=== PATIENT | female | born 1980 | race Caucasian/White ===

== ENCOUNTER 2020-03-12 05:57 | Emergency (ER) | payer OTHER, SELFPAY ==
[2020-03-12 05:58] VITALS: BP 143/77; PULSE 95; RESP 18; TEMP 36.7; O2SAT 98
[2020-03-12 06:48] VITALS: BP 125/83; PULSE 78; RESP 18; TEMP 36.9; O2SAT 98; BMI 34.7
--- NOTE | 2020-03-12 06:57 | ED_ITS ---
HPI - Abdominal Pain General Chief Complaint: Abdominal Pain Stated Complaint: ABD PAIN/BLOOD IN STOOL Time Seen by Provider: 03/12/20 06:56 History of Present Illness MD elicited complaint: abdominal pain Pertinent past history: other (gastric sleeve) Onset (ago): day(s) (2) Pain Consistency: intermittent Location: RLQ, LLQ and suprapubic Severity: moderate Quality: cramping Radiation: none Migration to: R flank Exacerbating factors: movement Relieving factors: nothing Associated symptoms: nausea, diarrhea and hematochezia Treatments prior to arrival: other (was recently prescribed sulindac for her chronic foot pain) Related Data Previous Rx's Medication Instructions Recorded cyclobenzaprine 10 mg PO TID PRN #14 tab 03/12/20 dicyclomine 20 mg PO TID PRN #30 tab 03/12/20 famotidine [Pepcid] 20 mg PO DAILY PRN #30 tab 03/12/20 ondansetron 4 mg PO Q8H PRN #20 tab 03/12/20 Allergies Allergy/AdvReac Type Severity Reaction Status Date / Time Sulfa (Sulfonamide AdvReac Diarrhea Verified 03/12/20 06:59 Antibiotics) Review of Systems Review of Systems Constitutional : No Weight loss, No Fever, No Chills ENT/Mouth : No sore throat, No Rhinorrhea Eyes: No Swelling, No Redness Cardiovascular : No Chest Pain, No SOB, NoEdema Respiratory : No Cough, No Sputum, No Wheezing Gastrointestinal : Positive Nausea, no Vomiting, positive Diarrhea, positive abdominal Pain, pos Hematochezia, No Melena Genitourinary : No Dysuria, No Urinary Frequency, No Hematuria, No Urgency Musculoskeletal : No joint pain, No Myalgias, No Joint Swelling Skin : No Skin Lesions, No rash Neuro : No Weakness, No Numbness, No Dizziness, No Headache Psych : No Anxiety/Panic, No Depression Heme/Lymph: No Bruising, No Lymphadenopathy Endocrine : No Polyuria, No Polydipsia All other systems reviewed and are negative. Physical Exam Vital Signs: Vital Signs: Last Vital Signs Temp 98.4 F 03/12/20 06:48 Pulse 78 03/12/20 06:48 Resp 18 03/12/20 06:48 BP 125/83 03/12/20 06:48 Pulse Ox 98 03/12/20 06:48 Body Mass Index 34.7 Appearance: Alert. Oriented X3. No acute distress. Eyes: Pupils equal, round and reactive to light. ENT: Pharynx normal. Neck: Normal inspection. Neck supple. CVS: Normal heart rate and rhythm. Pulses normal. Respiratory: No respiratory distress. Breath sounds normal. Abdomen: Soft and moderate lower abdominal ttp no rebound or guarding Rectal: non thrombosed non bleeding ext hemorrhoid x 2, brown stool Skin: Skin warm and dry. Normal skin color. Normal skin turgor. Extremities: No lower extremity edema. No calf ttp Neuro: Oriented X 3. No motor deficit. No sensory deficit. Course Course Course Narrative: patient with negative CT scan at this time - no signs of diverticulitis or colitis, UA pending H/H stable no GIB here MDM - Abdominal Pain MDM Narrative Medical decision making narrative: 39 yo female with hx of gastric sleeve, newly taking sulindac for foot pain complains of lower abdominal pain and diarrhea some of which she said looked bloody, family hx of Crohns and colitis, has not been on antibiotics, at this time will need labs, guiac stool, CT scan for colitis, IVF, IV morphine for pain Lab Data Result diagrams: 03/12/20 07:55 03/12/20 07:55 Labs: Lab Results 03/12/20 03/12/20 03/12/20 Range/Units 07:55 07:55 07:55 WBC 8.3 (4.8-10.8) X10*3/uL RBC 4.26 (4.20-5.50) X10*6/uL Hgb 13.2 (12.0-16.0) g/dl Hct 40.2 (37-47) % MCV 94.4 (80-98) fL MCH 31.0 (27.0-33.0) pg MCHC 32.8 (31.0-35.0) g/dl RDW 13.5 (11.0-16.0) % Plt Count 313 (160-400) X10*3/uL MPV 9.3 L (9.4-12.3) fL Immature Gran % (Auto) 0.2 (0.0-0.4) % Neut % (Auto) 55.2 (45-73) % Lymph % (Auto) 30.8 (20-40) % [place] % (Auto) 5.1 (2-11) % Eos % (Auto) 8.0 H (0-4) % Baso % (Auto) 0.7 (0-2) % Lymph # (Auto) 2.6 (1.2-4.9) X10*3/uL [place] # (Auto) 0.4 (0.1-1.2) X10*3/uL Eos # (Auto) 0.7 H (0.0-0.4) X10*3/uL Baso # (Auto) 0.1 (0.0-0.2) X10*3/uL Abs Immat Gran (auto) 0.02 (0.00-0.03) X10*3/uL Absolute Neuts (auto) 4.6 (2.0-8.3) X10*3/uL Absolute Nucleated RBC 0.000 (0.0-0.012) X10*3/uL Nucleated RBC % (auto) 0.0 (0.0-0.2) /100WBC PT (10.8-13.0) SEC INR (0.9-1.1) APTT (24.1-38.0) SEC Sodium 141 (135-145) mmol/L Potassium 4.1 (3.3-5.1) mmol/l Chloride 105 (96-108) mmol/L Carbon Dioxide 27 (22-29) mmol/L Anion Gap 13 (12-20) BUN 12 (9-16) mg/dL Creatinine 0.67 (0.5-1.4) mg/dL Estim Creat Clear Calc 118.0 Estimated GFR > 60 Random Glucose 90 (60-115) mg/dL Lactic Acid 1.0 (0.5-2.0) mmol/L Calcium 8.7 (8.4-10.2) mg/dL Magnesium 1.8 (1.6-2.6) mg/dL Total Bilirubin 0.5 (0.0-1.0) mg/dL Direct Bilirubin < 0.2 (0.0-0.5) mg/dL AST 16 (5-31) U/L ALT 13 (0-31) U/L Alkaline Phosphatase 79 (39-117) U/L Total Protein 6.4 L (6.5-8.0) g/dL Albumin 4.0 (3.5-5.0) g/dL Lipase 69 (8-78) U/L Urine Color Urine Appearance Urine pH Ur Specific [place] Urine Protein Urine Glucose (UA) Urine Ketones Urine Blood Urine Nitrite Ur Leukocyte Esterase Urine Test Stool Occult Blood (NEG) COVID-19 ([facility]Y) (Negative) COVID-19 Clin Com 03/12/20 03/12/20 03/12/20 Range/Units 07:55 07:55 07:55 WBC (4.8-10.8) X10*3/uL RBC (4.20-5.50) X10*6/uL Hgb (12.0-16.0) g/dl Hct (37-47) % MCV (80-98) fL MCH (27.0-33.0) pg MCHC (31.0-35.0) g/dl RDW (11.0-16.0) % Plt Count (160-400) X10*3/uL MPV (9.4-12.3) fL Immature Gran % (Auto) (0.0-0.4) % Neut % (Auto) (45-73) % Lymph % (Auto) (20-40) % [place] % (Auto) (2-11) % Eos % (Auto) (0-4) % Baso % (Auto) (0-2) % Lymph # (Auto) (1.2-4.9) X10*3/uL [place] # (Auto) (0.1-1.2) X10*3/uL Eos # (Auto) (0.0-0.4) X10*3/uL Baso # (Auto) (0.0-0.2) X10*3/uL Abs Immat Gran (auto) (0.00-0.03) X10*3/uL Absolute Neuts (auto) (2.0-8.3) X10*3/uL Absolute Nucleated RBC (0.0-0.012) X10*3/uL Nucleated RBC % (auto) (0.0-0.2) /100WBC PT 11.5 (10.8-13.0) SEC INR 1.0 (0.9-1.1) APTT 36.1 (24.1-38.0) SEC Sodium (135-145) mmol/L Potassium (3.3-5.1) mmol/l Chloride (96-108) mmol/L Carbon Dioxide (22-29) mmol/L Anion Gap (12-20) BUN (9-16) mg/dL Creatinine (0.5-1.4) mg/dL Estim Creat Clear Calc Estimated GFR Random Glucose (60-115) mg/dL Lactic Acid (0.5-2.0) mmol/L Calcium (8.4-10.2) mg/dL Magnesium (1.6-2.6) mg/dL Total Bilirubin (0.0-1.0) mg/dL Direct Bilirubin (0.0-0.5) mg/dL AST (5-31) U/L ALT (0-31) U/L Alkaline Phosphatase (39-117) U/L Total Protein (6.5-8.0) g/dL Albumin (3.5-5.0) g/dL Lipase (8-78) U/L Urine Color Urine Appearance Urine pH Ur Specific [place] Urine Protein Urine Glucose (UA) Urine Ketones Urine Blood Urine Nitrite Ur Leukocyte Esterase Urine Test Stool Occult Blood POS (NEG) COVID-19 ([facility]) Negative (Negative) COVID-19 Clin Com See Note 03/12/20 Range/Units 09:05 WBC (4.8-10.8) X10*3/uL RBC (4.20-5.50) X10*6/uL Hgb (12.0-16.0) g/dl Hct (37-47) % MCV (80-98) fL MCH (27.0-33.0) pg MCHC (31.0-35.0) g/dl RDW (11.0-16.0) % Plt Count (160-400) X10*3/uL MPV (9.4-12.3) fL Immature Gran % (Auto) (0.0-0.4) % Neut % (Auto) (45-73) % Lymph % (Auto) (20-40) % [place] % (Auto) (2-11) % Eos % (Auto) (0-4) % Baso % (Auto) (0-2) % Lymph # (Auto) (1.2-4.9) X10*3/uL [place] # (Auto) (0.1-1.2) X10*3/uL Eos # (Auto) (0.0-0.4) X10*3/uL Baso # (Auto) (0.0-0.2) X10*3/uL Abs Immat Gran (auto) (0.00-0.03) X10*3/uL Absolute Neuts (auto) (2.0-8.3) X10*3/uL Absolute Nucleated RBC (0.0-0.012) X10*3/uL Nucleated RBC % (auto) (0.0-0.2) /100WBC PT (10.8-13.0) SEC INR (0.9-1.1) APTT (24.1-38.0) SEC Sodium (135-145) mmol/L Potassium (3.3-5.1) mmol/l Chloride (96-108) mmol/L Carbon Dioxide (22-29) mmol/L Anion Gap (12-20) BUN (9-16) mg/dL Creatinine (0.5-1.4) mg/dL Estim Creat Clear Calc Estimated GFR Random Glucose (60-115) mg/dL Lactic Acid (0.5-2.0) mmol/L Calcium (8.4-10.2) mg/dL Magnesium (1.6-2.6) mg/dL Total Bilirubin (0.0-1.0) mg/dL Direct Bilirubin (0.0-0.5) mg/dL AST (5-31) U/L ALT (0-31) U/L Alkaline Phosphatase (39-117) U/L Total Protein (6.5-8.0) g/dL Albumin (3.5-5.0) g/dL Lipase (8-78) U/L Urine Color Cancelled Urine Appearance Cancelled Urine pH Cancelled Ur Specific [place] Cancelled Urine Protein Cancelled Urine Glucose (UA) Cancelled Urine Ketones Cancelled Urine Blood Cancelled Urine Nitrite Cancelled Ur Leukocyte Esterase Cancelled Urine Test Cancelled Stool Occult Blood (NEG) COVID-19 ([facility]) (Negative) COVID-19 Clin Com Discharge Plan Discharge Clinical Impression: Abdominal pain, Rectal bleed Patient Disposition: Home, Self-Care Instructions: Rectal Bleeding (ED), Abdominal Pain (ED) Additional Instructions: return to ED for any worsening symptoms or concerns STOP TAKING YOUR NEW MEDICATION take the pepcid regularly for 2 weeks Prescriptions: New cyclobenzaprine 10 mg tablet 10 mg PO TID PRN (Reason: muscle spasm) Qty: 14 RF: 0 famotidine [Pepcid] 20 mg tablet 20 mg PO DAILY PRN (Reason: abdominal discomfort) Qty: 30 RF: 0 ondansetron 4 mg tablet,disintegrating 4 mg PO Q8H PRN (Reason: nausea and vomiting) Qty: 20 RF: 0 dicyclomine 20 mg tablet 20 mg PO TID PRN (Reason: abdominal discomfort) Qty: 30 RF: 0 Referrals: Alfred Long MD [Physician] - 3 days (if this persists may need colonoscopy) Stand Alone Forms: Work/School Release [facility] Past Medical History Medical History (Updated 03/12/20 @ 10:35 by Angy Mcfarland DO) Bipolar 1 disorder Chronic back pain Chronic headaches Ectopic , tubal HTN (hypertension) Obesity Surgical History (Updated 03/12/20 @ 07:00 by Angy Mcfarland DO) Bariatric surgery status H/O abdominoplasty Social History Social History (Updated 03/12/20 @ 07:00 by Angy Mcfarland DO) Alcohol intake: never Smoking Status: Former smoker Smoked in Last 30 Days: No Use of substances other than those prescribed or required for medical reasons: No Advance Directives: No Advance Directives Information Provided: No
--- NOTE | 2020-03-12 07:00 | CT_ITS ---
EXAMINATION: CT ABDOMEN AND PELVIS WITH CONTRAST CLINICAL INFORMATION: Abdominal pain and rectal bleeding COMPARISON: Previous CT of the abdomen and pelvis December 2016 and abdominal ultrasound March 2018 TECHNIQUE: Multidetector volumetric images were obtained from the superior aspect of the liver through the pubic symphysis following administration 85 mL of Omnipaque 350 intravenous contrast. Sagittal and coronal reformatted images were obtained on the technologist's workstation. Oral contrast: Yes This CT examination was performed using dose optimization techniques as appropriate, variously including the following: *Automated exposure control *Adjustment of mA and/or kV according to patient size (this includes techniques or standardized protocols for targeted exams where dose is matched to indication/reason for exam; i.e. extremities or head) *Use of iterative reconstruction technique DLP: 793 mGy-cm FINDINGS: LUNG BASES: The visualized lung bases are unremarkable. LIVER, GALLBLADDER, AND BILIARY TREE: The liver is normal in size, shape, and attenuation. No focal hepatic lesion or biliary ductal dilatation is present. The gallbladder is unremarkable with no evidence of radiopaque gallstones, gallbladder wall thickening, or obvious pericholecystic inflammatory changes. PANCREAS: Unremarkable. SPLEEN: Unremarkable. ADRENAL GLANDS: Unremarkable. KIDNEYS AND URETERS: The kidneys are normal in size, shape, and attenuation. No hydronephrosis, hydroureter, or calculi seen. No perinephric stranding. BLADDER: Unremarkable. GASTROINTESTINAL TRACT: There is mild diverticulosis of the colon. No evidence of diverticulitis or colitis The small and large bowel are otherwise unremarkable. The appendix is unremarkable. There are postoperative changes from gastric sleeve procedure. ABDOMINAL WALL: There are postsurgical changes to the anterior abdominal wall. LYMPH NODES: Normal. VASCULAR: Unremarkable. PELVIC VISCERA: There is an IUD in satisfactory position. OSSEOUS STRUCTURES: There are postsurgical changes at L4-L5 and CT/CT abdomen pelvis w con IMPRESSION: Mild diverticulosis of the colon. Postoperative changes from gastric bypass. The uterus
[2020-03-12] MEDS: ondansetron HCL 4 MG/2 ML VIAL IVPUSH (07:59)
[2020-03-12] MEDS: Morphine Sulfate 4 MG/ML CARTRIDGE IVPUSH (07:59)
[2020-03-12] MEDS: 0.9 % Sodium Chloride 1,000 ML 999 ML IVCONT (08:00)
[2020-03-12 08:02] LABS: MANUAL DIFF FLAG NO
[2020-03-12 08:03] LABS: Basophils Absolute Auto 0.1 X10*3/uL (0.0-0.2); Basophils Percent Auto 0.7 % (0-2); Eosinophils Absolute Auto 0.7 X10*3/uL (0.0-0.4); Hematocrit 40.2 % (37-47); Hemoglobin 13.2 g/dl (12.0-16.0); Imm Gran Abs Auto 0.02 X10*3/uL (0.00-0.03); Imm Gran Pct Auto 0.2 % (0.0-0.4); Lymphocytes Absolute Auto 2.6 X10*3/uL (1.2-4.9); Lymphocytes Percent Auto 30.8 % (20-40); Mean Corpuscular HGB Conc 32.8 g/dl (31.0-35.0); Mean Corpuscular Volume 94.4 fL (80-98); Mean Platelet Volume 9.3 fL (9.4-12.3); Monocytes Absolute Auto 0.4 X10*3/uL (0.1-1.2); Monocytes Percent Auto 5.1 % (2-11); Neutrophils Absolute Auto 4.6 X10*3/uL (2.0-8.3); Neutrophils Percent Auto 55.2 % (45-73); Platelet Count 313 X10*3/uL (160-400); Red Blood Count 4.26 X10*6/uL (4.20-5.50); Red Cell Distribution Width 13.5 % (11.0-16.0); White Blood Count 8.3 X10*3/uL (4.8-10.8)
[2020-03-12 08:04] LABS: OBS Int Ctl Valid YES; OBS1 POS (NEG)
[2020-03-12 08:09] LABS: Prothrombin Time 11.5 SEC (10.8-13.0)
[2020-03-12 08:11] LABS: Partial Thromboplastin Time 36.1 SEC (24.1-38.0)
[2020-03-12 08:20] LABS: COVID-19 Test Negative (Negative)
[2020-03-12 08:28] LABS: Alanine Aminotransferase 13 U/L (0-31); Alkaline Phosphatase 79 U/L (39-117); Anion Gap 13 (12-20); Aspartate Amino Transferase 16 U/L (5-31); Bilirubin Direct < 0.2 mg/dL (0.0-0.5); Bilirubin Total 0.5 mg/dL (0.0-1.0); Blood Urea Nitrogen 12 mg/dL (9-16); Calcium 8.7 mg/dL (8.4-10.2); Carbon Dioxide 27 mmol/L (22-29); Chloride 105 mmol/L (96-108); Estimated Glomerular Filt Rate > 60; Glucose Random 90 mg/dL (60-115); Lipase 69 U/L (8-78); Magnesium 1.8 mg/dL (1.6-2.6); Potassium 4.1 mmol/l (3.3-5.1); Sodium 141 mmol/L (135-145); Total Protein 6.4 g/dL (6.5-8.0)
[2020-03-12] MEDS: iohexoL 350 MG/ML 100 ML INFUS..BTL IV (09:33)
[2020-03-12] MEDS: Acetaminophen Oral Liquid 650 MG/20.3 ML SOLUTION PO (10:15)
[2020-03-12 10:45] LABS: Glucose Urine UA NEG (NEG); Leukocyte Esterase Urine NEG (NEG); Nitrite Urine NEG (NEG); Urine Blood NEG (NEG); Urine Ketones NEG (NEG); Urine Protein NEG (NEG-TRACE)
[2020-03-12 10:46] LABS: Appearance Urine CLEAR; Color Urine YELLOW
[2020-03-12 10:47] LABS: UPreg QC Valid YES; Urine Pregnancy NEGATIVE (NEGATIVE)
== END 2020-03-12 11:02 | disposition home or self-care (01) ==
PROVIDERS: Emergency Provider Emergency Medicine; PCP Internal Medicine
DX: K62.5 Hemorrhage of anus and rectum (principal); R10.31 Right lower quadrant pain; R10.32 Left lower quadrant pain; R19.7 Diarrhea, unspecified; Z20.822 Contact with and (suspected) exposure to COVID-19; Z79.899 Other long term (current) drug therapy
CPT/HCPCS: 36415; 74177; 80048; 80076; 81003; 81025; 82272; 83605; 83690; 83735; 85025; 85610; 85730; 87040; 87635; 96361; 96374; 96375; 99284; J2270; J2405; Q9967

== ENCOUNTER 2020-05-24 13:41 | Emergency (ER) | payer OTHER, SELFPAY ==
--- NOTE | ~2020-05-24 | XR_ITS ---
EXAMINATION: XR CHEST CLINICAL INFORMATION: Chest pain . COMPARISON: None TECHNIQUE: Frontal view of the chest was obtained. FINDINGS: No significant abnormality is noted involving the heart, lungs, mediastinum, bony thorax or soft tissues. XR/XR chest 1V IMPRESSION: Unremarkable chest examination.
--- NOTE | 2020-05-24 13:53 | ECG_ITS ---
Test Reason : CHEST PAIN Blood Pressure : / mmHG Vent. Rate : 113 BPM Atrial Rate : 113 BPM P-R Int : 116 ms QRS Dur : 080 ms QT Int : 314 ms P-R-T Axes : 040 -03 -06 degrees QTc Int : 430 ms Sinus tachycardia Moderate voltage criteria for LVH, may be normal variant Borderline ECG When compared with ECG of 21-OCT-2019 10:59, No significant change was found Referred By: Generic ED Physician Electronically Signed By:MARIA ALEJANDRA NAZARIO
[2020-05-24 14:06] VITALS: BP 133/84; PULSE 115; RESP 22; TEMP 36.7; O2SAT 99; BMI 35.2
[2020-05-24 14:25] LABS: MANUAL DIFF FLAG NO
[2020-05-24 14:26] LABS: Basophils Absolute Auto 0.1 X10*3/uL (0.0-0.2); Basophils Percent Auto 0.6 % (0-2); Eosinophils Absolute Auto 0.6 X10*3/uL (0.0-0.4); Eosinophils Percent Auto 7.1 % (0-4); Hematocrit 37.7 % (37-47); Hemoglobin 12.2 g/dl (12.0-16.0); Imm Gran Abs Auto 0.02 X10*3/uL (0.00-0.03); Imm Gran Pct Auto 0.3 % (0.0-0.4); Lymphocytes Absolute Auto 2.2 X10*3/uL (1.2-4.9); Lymphocytes Percent Auto 27.6 % (20-40); Mean Corpuscular HGB Conc 32.4 g/dl (31.0-35.0); Mean Corpuscular Volume 95.9 fL (80-98); Monocytes Absolute Auto 0.4 X10*3/uL (0.1-1.2); Monocytes Percent Auto 5.3 % (2-11); Neutrophils Absolute Auto 4.6 X10*3/uL (2.0-8.3); Neutrophils Percent Auto 59.1 % (45-73); Platelet Count 320 X10*3/uL (160-400); Red Blood Count 3.93 X10*6/uL (4.20-5.50); Red Cell Distribution Width 13.4 % (11.0-16.0); White Blood Count 7.9 X10*3/uL (4.8-10.8)
[2020-05-24 14:55] LABS: Anion Gap 13 (12-20); Blood Urea Nitrogen 15 mg/dL (9-16); Calcium 8.6 mg/dL (8.4-10.2); Carbon Dioxide 23 mmol/L (22-29); Chloride 108 mmol/L (96-108); Creatinine Clr Calc Pharmacy 120.8; Estimated Glomerular Filt Rate > 60; Glucose Random 116 mg/dL (60-115); Potassium 3.8 mmol/L (3.3-5.1); Sodium 140 mmol/L (135-145)
[2020-05-24 14:59] VITALS: BP 120/74; PULSE 101; RESP 18; TEMP 36.8; O2SAT 98
[2020-05-24 15:01] LABS: Troponin-I High Sensitivity < 3.5 ng/L (<3.5-17.0)
--- NOTE | 2020-05-24 15:07 | ED.CHESTPAIN ---
HPI - Chest Pain General Chief Complaint: Chest Pain Stated Complaint: HIGH HEART RATE CHEST PAIN Time Seen by Provider: 05/24/20 14:50 Source: patient Mode of arrival: ambulatory Limitations: no limitations History of Present Illness HPI narrative: 39-year-old female with past medical history significant for gastric sleeve, Chronic back pain, Chronic headaches, Ectopic , HTN, Obesity she presents ambulatory to triage with complaint of chest pain which at times will radiate to her shoulders states she has noticed that her heart rate has been elevated in the ?160s ? States she has had this issue in the past she has called her primary care doctor and she is scheduled to see a client liaison and have Holter monitor study. Additionally states do all of her chest discomfort she was also having headache which is consistent with her chronic and these other symptoms has exacerbated this. She otherwise denies any recent URI symptoms no shortness of breath no lower extremity swelling or pain. No recent travel. No recent sick contacts. Chest pain is described as pressure-like on the left-sided chest worsened with certain movements and palpation no specific alleviating factors. She has not tried anything at home. MD complaint: chest discomfort Onset (ago): day(s) Timing of current episode: constant Prior episodes: Yes Onset: during rest Pain location: left chest Pain radiation: left shoulder Severity: moderate Quality: tightness and aching Relieving factors: nothing Exacerbating factors: nothing Treatment prior to arrival: none Related Data Previous Rx's Medication Instructions Recorded cyclobenzaprine 10 mg PO TID PRN #14 tab 03/12/20 dicyclomine 20 mg PO TID PRN #30 tab 03/12/20 famotidine [Pepcid] 20 mg PO DAILY PRN #30 tab 03/12/20 ondansetron 4 mg PO Q8H PRN #20 tab 03/12/20 Allergies Allergy/AdvReac Type Severity Reaction Status Date / Time Sulfa (Sulfonamide AdvReac Diarrhea Verified 03/12/20 06:59 Antibiotics) Review of Systems Review of Systems: Constitutional: No Weight loss, No Fever, No Chills, No Night Sweats, No Fatigue, No Malaise ENT/Mouth: No Hearing loss, No Ear Pain, No Nasal Congestion, No Sinus Pain, No Hoarseness, No sore throat, No Rhinorrhea, No Swallowing Difficulty Eyes: No Eye Pain, No Swelling, No Redness, No Foreign Body, No Discharge, No Vision Changes Cardiovascular: + Chest Pain, No SOB, No Dyspnea on Exertion, No Orthopnea, No Edema, No Palpitations Respiratory: No Cough, No Sputum, No Wheezing, No Dyspnea Gastrointestinal: No Nausea, No Vomiting, No Diarrhea, No Constipation, No abdominal Pain, No Hematochezia, No Melena Genitourinary: no irregular bleeding, No Dysuria, No Urinary Frequency, No Hematuria, No Urinary Incontinence, No Urgency, No Flank Pain, No Urinary Flow Changes, No Hesitancy Musculoskeletal: No joint pain, No Myalgias, No Joint Swelling Skin: No Skin Lesions, No rash Neuro: No Weakness, No Numbness, No Paresthesias, No Loss of Consciousness, No Dizziness, No Headache Psych: + Anxiety/Panic, No Depression, No SI/HI/AH/VH, No Social Issues Heme/Lymph: No Bruising, No Bleeding,No Lymphadenopathy Endocrine: No Polyuria, No Polydipsia, No Temperature Intolerance Yes all other systems are reviewed and are negative [facility] Past Medical History Medical History Bipolar 1 disorder Chronic back pain Chronic headaches Ectopic , tubal HTN (hypertension) Obesity Surgical History Bariatric surgery status H/O abdominoplasty Social History Social History (Updated 03/12/20 @ 07:00 by Angy Mcfarland DO) Alcohol intake: never Smoking Status: Former smoker Advance Directives: No Physical Exam Vital Signs: Vital Signs: Last Vital Signs Temp 97.6 F 05/24/20 16:31 Pulse 95 05/24/20 16:31 Resp 18 05/24/20 16:31 BP 135/85 05/24/20 16:31 Pulse Ox 100 05/24/20 16:31 Body Mass Index 35.2 Reviewed Const: General: cooperative and healthy appearing; No acute distress or intoxicated appearing Nutritional Appearance: average body habitus Orientation/consciousness: patient oriented x3 HENMT: Head: Yes normal to inspection Ears: hearing grossly normal bilaterally Eyes: General: appearance normal, both eyes and all related structures Visual Harris: normal visual harris by confrontation Neck: Neck: Yes normal visual inspection, No positive Brudzinski's sign, No positive Kernig's sign and No tender Thyroid: Thyroid normal Chest: Chest palpation & inspection: normal inspection of the chest and tenderness pectoral muscle Resp: Effort & Inspection: normal respiratory effort Auscultation: clear to auscultation bilaterally Cardio: Jugular venous distension: no JVD Rate: tachycardic Heart sounds: S1 normal heart sound present and S2 normal heart sound present GI: Inspection: Yes normal to inspection Palpation (GI): Soft to palpation Percussion: Yes normal to percussion Auscultation: normal bowel sounds : General: Yes no CVA tenderness Back/Spine/Pelvis: Back: no CVA tenderness Skin: General skin exam: no rashes or lesions noted Neuro: General: patient oriented x3 Extrem: General: Yes normal to inspection Course Reevaluation(s) Reevaluation #1: Constellation of symptoms including chest pain has had similar episodes in the past seem more musculoskeletal/pleurisy has had several negative workups does clinically appear to be more anxious. My suspicions for ACS/pulmonary embolism/dissection/infectious pathology are low. She had protocol lab work done in triage with the negative EKG and negative troponin and electrolytes overall without derangement however she is tachycardic [id number] thus D-dimer and TSH was added. At this time will treat her symptomatically with nonnarcotic analgesia for her chest pain and she is requesting sumatriptan for headache which has worked well in the past. Otherwise hemodynamically stable, nontoxic appearing, VSS, NAD. Reevaluation #2: 1545 While awaiting blood work including the D-dimer test I was just informed by the nurse that patient had eloped without informing anyone. Patient did not have an IV in place. Attempted to call number listed went to voicemail requesting call back. MDM - Chest Pain Medical Records Data Attestation: I reviewed the patient's medical records. Lab Data Attestation: I reviewed the patient's lab results. Result diagrams: 05/24/20 14:18 05/24/20 14:18 Labs: Lab Results 05/24/20 05/24/20 05/24/20 Range/Units 14:18 14:18 14:18 WBC 7.9 (4.8-10.8) X10*3/uL RBC 3.93 L (4.20-5.50) X10*6/uL Hgb 12.2 (12.0-16.0) g/dl Hct 37.7 (37-47) % MCV 95.9 (80-98) fL MCH 31.0 (27.0-33.0) pg MCHC 32.4 (31.0-35.0) g/dl RDW 13.4 (11.0-16.0) % Plt Count 320 (160-400) X10*3/uL MPV 9.0 L (9.4-12.3) fL Immature Gran % (Auto) 0.3 (0.0-0.4) % Neut % (Auto) 59.1 (45-73) % Lymph % (Auto) 27.6 (20-40) % [place] % (Auto) 5.3 (2-11) % Eos % (Auto) 7.1 H (0-4) % Baso % (Auto) 0.6 (0-2) % Lymph # (Auto) 2.2 (1.2-4.9) X10*3/uL [place] # (Auto) 0.4 (0.1-1.2) X10*3/uL Eos # (Auto) 0.6 H (0.0-0.4) X10*3/uL Baso # (Auto) 0.1 (0.0-0.2) X10*3/uL Abs Immat Gran (auto) 0.02 (0.00-0.03) X10*3/uL Absolute Neuts (auto) 4.6 (2.0-8.3) X10*3/uL Absolute Nucleated RBC 0.000 (0.0-0.012) X10*3/uL Nucleated RBC % (auto) 0.0 (0.0-0.2) /100WBC PT 10.9 (10.8-13.0) SEC INR 0.9 (0.9-1.1) APTT 33.9 (24.1-38.0) SEC Hold Blue Top SEE NOTE Sodium 140 (135-145) mmol/L Potassium 3.8 (3.3-5.1) mmol/L Chloride 108 (96-108) mmol/L Carbon Dioxide 23 (22-29) mmol/L Anion Gap 13 (12-20) BUN 15 (9-16) mg/dL Creatinine 0.66 (0.5-1.4) mg/dL Estim Creat Clear Calc 120.8 Estimated GFR > 60 Random Glucose 116 H (60-115) mg/dL Calcium 8.6 (8.4-10.2) mg/dL Total Bilirubin 0.2 (0.0-1.0) mg/dL Direct Bilirubin < 0.2 (0.0-0.5) mg/dL AST 16 (5-31) U/L ALT 16 (0-31) U/L Alkaline Phosphatase 74 (39-117) U/L Troponin I High Sens (<3.5-17.0) ng/L Total Protein 6.4 L (6.5-8.0) g/dL Albumin 3.9 (3.5-5.0) g/dL TSH 0.49 (0.32-4.0) uIU/mL COVID-19 (REILLY) (Negative) COVID-19 Clin Com 05/24/20 05/24/20 Range/Units 14:18 16:06 WBC (4.8-10.8) X10*3/uL RBC (4.20-5.50) X10*6/uL Hgb (12.0-16.0) g/dl Hct (37-47) % MCV (80-98) fL MCH (27.0-33.0) pg MCHC (31.0-35.0) g/dl RDW (11.0-16.0) % Plt Count (160-400) X10*3/uL MPV (9.4-12.3) fL Immature Gran % (Auto) (0.0-0.4) % Neut % (Auto) (45-73) % Lymph % (Auto) (20-40) % [place] % (Auto) (2-11) % Eos % (Auto) (0-4) % Baso % (Auto) (0-2) % Lymph # (Auto) (1.2-4.9) X10*3/uL [place] # (Auto) (0.1-1.2) X10*3/uL Eos # (Auto) (0.0-0.4) X10*3/uL Baso # (Auto) (0.0-0.2) X10*3/uL Abs Immat Gran (auto) (0.00-0.03) X10*3/uL Absolute Neuts (auto) (2.0-8.3) X10*3/uL Absolute Nucleated RBC (0.0-0.012) X10*3/uL Nucleated RBC % (auto) (0.0-0.2) /100WBC PT (10.8-13.0) SEC INR (0.9-1.1) APTT (24.1-38.0) SEC Hold Blue Top Sodium (135-145) mmol/L Potassium (3.3-5.1) mmol/L Chloride (96-108) mmol/L Carbon Dioxide (22-29) mmol/L Anion Gap (12-20) BUN (9-16) mg/dL Creatinine (0.5-1.4) mg/dL Estim Creat Clear Calc Estimated GFR Random Glucose (60-115) mg/dL Calcium (8.4-10.2) mg/dL Total Bilirubin (0.0-1.0) mg/dL Direct Bilirubin (0.0-0.5) mg/dL AST (5-31) U/L ALT (0-31) U/L Alkaline Phosphatase (39-117) U/L Troponin I High Sens < 3.5 (<3.5-17.0) ng/L Total Protein (6.5-8.0) g/dL Albumin (3.5-5.0) g/dL TSH (0.32-4.0) uIU/mL COVID-19 (REILLY) Negative (Negative) COVID-19 Clin Com See Note Imaging Data Chest x-ray: Radiologist's impression: [address] [id number] ReportSigned Patient: Mely VelasquezMR#: [id number]: [id number]:[id number]/Sex: 39 / FADM Date: 05/24/20Loc: [address]: Ordering Physician: Generic ED Physician Date of Service: 05/24/20 Procedure(s): XR chest 1V Accession Number(s): [id number] cc: Generic ED Physician~ EXAMINATION: XR CHEST CLINICAL INFORMATION: Chest pain . COMPARISON: None TECHNIQUE: Frontal view of the chest was obtained. FINDINGS: No significant abnormality is noted involving the heart, lungs, mediastinum, bony thorax or soft tissues. XR/XR chest 1V IMPRESSION: Unremarkable chest examination. Dictated By:FANY LAZCANO MDSigned By:<Electronically signed by FANY LAZCANO MD in OV>05/24/20 1447 DD/ 1409TD/TT: [employer] [place] [facility] [place] ECG #1: Interpretation: Sinus tachycardia Rate 113 Moderate voltage criteria for LVH, may be normal variant Borderline ECG When compared with ECG of 21-OCT-2019 10:59, No significant change was found Discharge Plan Discharge Clinical Impression: Atypical chest pain, Migraine Patient Disposition: Elopement Prescriptions: No Action cyclobenzaprine 10 mg tablet 10 mg PO TID PRN (Reason: muscle spasm) Qty: 14 RF: 0 famotidine [Pepcid] 20 mg tablet 20 mg PO DAILY PRN (Reason: abdominal discomfort) Qty: 30 RF: 0 ondansetron 4 mg tablet,disintegrating 4 mg PO Q8H PRN (Reason: nausea and vomiting) Qty: 20 RF: 0 dicyclomine 20 mg tablet 20 mg PO TID PRN (Reason: abdominal discomfort) Qty: 30 RF: 0
[2020-05-24 15:18] LABS: INTERNATIONAL NORM RATIO 0.9 (0.9-1.1); Prothrombin Time 10.9 SEC (10.8-13.0)
[2020-05-24 15:21] LABS: Partial Thromboplastin Time 33.9 SEC (24.1-38.0)
[2020-05-24 15:27] LABS: Alanine Aminotransferase 16 U/L (0-31); Albumin Level 3.9 g/dL (3.5-5.0); Alkaline Phosphatase 74 U/L (39-117); Aspartate Amino Transferase 16 U/L (5-31); Bilirubin Direct < 0.2 mg/dL (0.0-0.5); Bilirubin Total 0.2 mg/dL (0.0-1.0); Total Protein 6.4 g/dL (6.5-8.0)
[2020-05-24 15:47] LABS: Thyroid Stimulating Hormone 0.49 uIU/mL (0.32-4.0)
--- NOTE | 2020-05-24 15:54 | PC.NURSE ---
pt refused ordered tylenol, sts normally taking sumatryptan for headaches. provider aware.
[2020-05-24 16:31] VITALS: BP 135/85; PULSE 95; RESP 18; TEMP 36.4; O2SAT 100
[2020-05-24 16:37] LABS: COVID-19 Test Negative (Negative); IDNOW Serial# 9DD0AD1C
[2020-05-24 17:01] LABS: D Dimer < 200 NG/ML
--- NOTE | 2020-05-24 17:10 | PC.NURSE ---
this rn in to tell pt that now that provider is available, pt can be ordered imitrex. when this rn returning w imitrex delivered from pharmacy, pt does not appear in room or nearby bathrooms, yas left on stretcher, pt appears to have eloped. provider aware.
== END 2020-05-24 17:12 | disposition left against medical advice (07) ==
PROVIDERS: Nurse Practitioner Primary Care; Emergency Provider Emergency Medicine; PCP Internal Medicine
DX: R07.89 Other chest pain (principal); G43.909 Migraine, unspecified, not intractable, without status migrainosus; R00.0 Tachycardia, unspecified; I10 Essential (primary) hypertension; Z98.84 Bariatric surgery status
CPT/HCPCS: 36415; 71045; 80048; 80076; 84443; 84484; 85025; 85379; 85610; 85730; 87635; 93005; 99283

== ENCOUNTER 2020-07-09 09:27 | Day surgery (SDC) | payer OTHER, SELFPAY ==
[2020-07-09] VITALS (8 sets, daily range): BP systolic 113–129; BP diastolic 61–75; PULSE 89–98; RESP 16; TEMP 36.6; O2SAT 96–99; BMI 35.0
--- NOTE | ~2020-07-09 | FL_ITS ---
EXAMINATION: XR LUMBAR PUNCTURE CLINICAL INFORMATION: Optic neuritis, pseudotumor cerebri. COMPARISON: None TECHNIQUE: Following explaining fluoroscopy-guided lumbar puncture procedure, benefits and risk, a written consent was obtained. Patient was placed prone on fluoroscopy table, and low back area was cleaned and draped in usual sterile manner. 1% lidocaine was injected at the L2-L3 disc level. Subsequently, a 22-gauge spinal needle was inserted over right paramidline approach intrathecally at the L2-L3 disc level. After removing the stylet and observing CSF return, patient was quickly placed in left lateral decubitus view, and opening CSF pressure was obtained. Subsequently, clear CSF was collected in 4 test tubes. The stylet was reintroduced and needle withdrawn. Patient tolerated procedure extremely well. FINDINGS: On visualized solitary AP image of lumbar spine, there are bilateral pedicular screws at L4 and L5 vertebrae with interconnecting rods and a disc prosthesis at the L4-L5 disc level for fusion. The opening CSF pressure measured 14 cm of water. Approximately 8 mL of clear CSF fluid collected in 4 test tubes and sent to lab. FLUOROSCOPY TIME: 1.4 minutes DOSE AREA PRODUCT: 12.061 uGy-m2 (microgray-meter squared) FL/FL guided lumbar puncture LP IMPRESSION: Successful fluoroscopy-guided lumbar puncture performed. Opening CSF pressure was 14 cm of water.
[2020-07-09 10:02] LABS: MANUAL DIFF FLAG NO
[2020-07-09 10:07] LABS: Basophils Absolute Auto 0.1 X10*3/uL (0.0-0.2); Basophils Percent Auto 0.8 % (0-2); Eosinophils Absolute Auto 0.8 X10*3/uL (0.0-0.4); Eosinophils Percent Auto 8.6 % (0-4); Hematocrit 42.2 % (37-47); Hemoglobin 13.9 g/dl (12.0-16.0); Imm Gran Abs Auto 0.04 X10*3/uL (0.00-0.03); Imm Gran Pct Auto 0.5 % (0.0-0.4); Lymphocytes Absolute Auto 2.2 X10*3/uL (1.2-4.9); Lymphocytes Percent Auto 24.6 % (20-40); Mean Corpuscular HGB Conc 32.9 g/dl (31.0-35.0); Mean Corpuscular Hemoglobin 31.2 pg (27.0-33.0); Mean Corpuscular Volume 94.6 fL (80-98); Mean Platelet Volume 8.9 fL (9.4-12.3); Monocytes Absolute Auto 0.4 X10*3/uL (0.1-1.2); Monocytes Percent Auto 4.7 % (2-11); Neutrophils Absolute Auto 5.4 X10*3/uL (2.0-8.3); Neutrophils Percent Auto 60.8 % (45-73); Platelet Count 328 X10*3/uL (160-400); Red Blood Count 4.46 X10*6/uL (4.20-5.50); Red Cell Distribution Width 13.5 % (11.0-16.0); White Blood Count 8.8 X10*3/uL (4.8-10.8)
[2020-07-09 10:11] LABS: INTERNATIONAL NORM RATIO 0.9 (0.9-1.1); Prothrombin Time 11.2 SEC (10.8-13.0)
[2020-07-09 10:11] LABS: Glucose, Whole Blood 72 mg/dL (60-115)
[2020-07-09] MEDS: ondansetron HCL 4 MG/2 ML VIAL IVPUSH (12:07)
[2020-07-09] MEDS: oxyCODONE HCl Immed Release 5 MG TABLET 10 MG PO (12:10)
[2020-07-09 12:26] LABS: CSF Appearance Clear, Colorless; CSF Tube # 2
[2020-07-09 12:39] LABS: Glucose CSF 57 mg/dL; Total Protein CSF 38.4 mg/dL (15-45)
[2020-07-09 13:14] LABS: Appearance CSF CLEAR; CSF Monos 0 %; CSF Other Cells % 0 %; CSF Tube # 4; Color CSF COLORLESS; Lymphocytes CSF 100 %; Neutrophils CSF 0 %; Red Blood Cell CSF 0 MM*3; White Blood Cell CSF 1 MM*3
== END 2020-07-09 14:13 | disposition home or self-care (01) ==
PROVIDERS: Psychiatry & Neurology Neurology; PCP Internal Medicine; Visit Provider Radiology Diagnostic Radiology
PROC: 009U3ZZ Drainage of Spinal Canal, Percutaneous Approach (ICD-10-PCS; CPT 62270; principal; 2020-07-09 11:00)
DX: G93.2 Benign intracranial hypertension (principal); H46.9 Unspecified optic neuritis; M79.7 Fibromyalgia; I10 Essential (primary) hypertension; F31.9 Bipolar disorder, unspecified; Z98.84 Bariatric surgery status; Z87.891 Personal history of nicotine dependence
CPT/HCPCS: 36415; 62328; 82945; 82947; 84157; 85025; 85610; 85730; 87015; 87070; 87205; 89051; J2405

== ENCOUNTER 2020-07-11 10:53 | Emergency (ER) | payer OTHER, SELFPAY ==
[2020-07-11 11:11] VITALS: BP 122/73; PULSE 104; RESP 16; TEMP 36.8; O2SAT 100; BMI 35.0
--- NOTE | 2020-07-11 12:37 | PC.NURSE ---
PT WAS FOUND KNEELING AT THE FOOT OF HER BED ON THE FLOOR, SHE STATES SHE WAS ATTEMPTING TO EMPTY HER BED MARTE, THERE WAS A LARGE AMOUNT OF URINE ON THE FLOOR, HE [employer] PANTS AND STRETCHER, SHE WAS ASSISTED BACK TO BED AND CHANGED INTO [facility] ATTIRE.
[2020-07-11 13:00] LABS: MANUAL DIFF FLAG NO
[2020-07-11] MEDS: diphenhydrAMINE HCL 50 MG/ML VIAL 25 MG IVPUSH (13:00)
[2020-07-11] MEDS: 0.9 % Sodium Chloride 1,000 ML 999 ML IVCONT ×2 (13:00→14:24)
[2020-07-11] MEDS: ondansetron HCL 4 MG/2 ML VIAL IVPUSH ×2 (13:00→16:11)
[2020-07-11] MEDS: Butalb/Acetamin/Caff 50/325/40 TABLET 2 TAB PO (13:00)
[2020-07-11] MEDS: Metoclopramide HCl 10 MG/2 ML VIAL IVPUSH (13:00)
[2020-07-11 13:01] LABS: Basophils Absolute Auto 0.1 X10*3/uL (0.0-0.2); Basophils Percent Auto 0.6 % (0-2); Eosinophils Absolute Auto 0.9 X10*3/uL (0.0-0.4); Eosinophils Percent Auto 10.8 % (0-4); Hematocrit 38.3 % (37-47); Hemoglobin 12.7 g/dl (12.0-16.0); Imm Gran Abs Auto 0.03 X10*3/uL (0.00-0.03); Imm Gran Pct Auto 0.4 % (0.0-0.4); Lymphocytes Absolute Auto 2.7 X10*3/uL (1.2-4.9); Lymphocytes Percent Auto 33.4 % (20-40); Mean Corpuscular HGB Conc 33.2 g/dl (31.0-35.0); Mean Corpuscular Hemoglobin 31.1 pg (27.0-33.0); Mean Corpuscular Volume 93.9 fL (80-98); Mean Platelet Volume 8.9 fL (9.4-12.3); Monocytes Absolute Auto 0.5 X10*3/uL (0.1-1.2); Monocytes Percent Auto 6.6 % (2-11); Neutrophils Absolute Auto 3.9 X10*3/uL (2.0-8.3); Neutrophils Percent Auto 48.2 % (45-73); Platelet Count 290 X10*3/uL (160-400); Red Blood Count 4.08 X10*6/uL (4.20-5.50); Red Cell Distribution Width 13.4 % (11.0-16.0)
[2020-07-11 13:10] LABS: INTERNATIONAL NORM RATIO 0.8 (0.9-1.1); Prothrombin Time 9.8 SEC (10.8-13.0)
[2020-07-11 13:13] LABS: Partial Thromboplastin Time 34.1 SEC (24.1-38.0)
[2020-07-11 13:34] LABS: Alanine Aminotransferase 18 U/L (0-31); Albumin Level 3.8 g/dL (3.5-5.0); Alkaline Phosphatase 75 U/L (39-117); Anion Gap 10 (12-20); Aspartate Amino Transferase 14 U/L (5-31); Bilirubin Direct < 0.2 mg/dL (0.0-0.5); Blood Urea Nitrogen 20 mg/dL (9-16); Calcium 8.9 mg/dL (8.4-10.2); Carbon Dioxide 22 mmol/L (22-29); Chloride 111 mmol/L (96-108); Creatinine Clr Calc Pharmacy 108.9; Estimated Glomerular Filt Rate > 60; Glucose Random 83 mg/dL (60-115); Magnesium 1.9 mg/dL (1.6-2.6); Sodium 139 mmol/L (135-145); Total Protein 6.1 g/dL (6.5-8.0)
[2020-07-11 13:46] LABS: Bilirubin Total 0.2 mg/dL (0.0-1.0)
--- NOTE | 2020-07-11 13:49 | ED.HA ---
HPI - Headache General Chief Complaint: Headache Stated Complaint: SEVER HEADACHE Time Seen by Provider: 07/11/20 12:06 Source: patient Mode of arrival: ambulatory History of Present Illness HPI Narrative: 39-year-old female with a PMHx of bipolar, chronic back pain, chronic headaches, HTN, obesity, optic neuritis, and working diagnosis of MS, lumbar puncture on Sunday 07/09, presenting to the ED c/o severe headache s/p LP. Reports N/V, abdominal discomfort, and low back pain radiating down right lower extremity. States she is unable to sit or ambulate secondary to severe headache, has tried Tylenol, Sumatriptan, and 10mg Oxycodone at home without relief. Reports acute on chronic visual changes, blurry vision, photophobia, urinary incontinence, and difficulty ambulating which has been present prior to LP/sx she has been seeing Neruology for. Denies taking anticoagulation, head trauma or LOC. Denies fever, chills, CP/SOB, weakness. Related Data Previous Rx's Medication Instructions Recorded cyclobenzaprine 10 mg PO TID PRN #14 tab 03/12/20 dicyclomine 20 mg PO TID PRN #30 tab 03/12/20 famotidine [Pepcid] 20 mg PO DAILY PRN #30 tab 03/12/20 ondansetron 4 mg PO Q8H PRN #20 tab 03/12/20 vwibcqjklg-mlpsvjwlkjqda-sfjx 1 cap PO Q4-6H PRN #14 cap 07/11/20 [Fioricet] ondansetron HCl [Zofran] 4 mg PO Q8H PRN #10 tab 07/11/20 Allergies Allergy/AdvReac Type Severity Reaction Status Date / Time Sulfa (Sulfonamide AdvReac Diarrhea Verified 07/11/20 11:17 Antibiotics) Review of Systems Review of Systems: Constitutional: No Fever, No Chills, No Night Sweats, No Fatigue, No Malaise ENT/Mouth: No Hearing loss, No Nasal Congestion, No Hoarseness, No sore throat Eyes: No Eye Pain, No Swelling, +Vision Changes Cardiovascular: No Chest Pain, No SOB Respiratory: No Cough, No Dyspnea Gastrointestinal: + Nausea, + Vomiting, No Diarrhea, No Constipation, +Abdominal pain Genitourinary: No Dysuria, No Urinary Frequency, No Hematuria, + Urinary Incontinence Musculoskeletal: + joint pain, No Myalgias, No Joint Swelling Skin: No Skin Lesions, No rash Neuro: No Weakness, No Numbness, + Paresthesias, No Loss of Consciousness, +Lightheaded, + Headache Yes all other systems are reviewed and are negative Eyes: Eyes: Reports photophobia PMFSH Past Medical History Attestation statement: The following information was validated with the patient. Medical History Bipolar 1 disorder Chronic back pain Chronic headaches Ectopic , tubal HTN (hypertension) Obesity Optic neuritis Surgical History Bariatric surgery status H/O abdominoplasty Social History Social History Alcohol intake: never Smoked in Last 30 Days: No Use of substances other than those prescribed or required for medical reasons: No Advance Directives: Yes Advance Directives Information Provided: No Advance Directives on File: No Patient : No Physical Exam Vital Signs: Vital Signs: Last Vital Signs Temp 98.3 F 07/11/20 15:32 Pulse 92 07/11/20 15:32 Resp 20 07/11/20 15:32 BP 128/69 07/11/20 15:32 Pulse Ox 98 07/11/20 15:32 Body Mass Index 35.0 Const: General: cooperative and no acute distress Orientation/consciousness: patient oriented x3 Limitations: no limitations HENMT: Head: Yes normal to inspection and Yes atraumatic Ears: hearing grossly normal bilaterally General nose exam: Normal external nose present Face and sinus: Yes normal facial exam Eyes: General: appearance normal, both eyes and all related structures Pupils: Equal, round and reactive pupils present EOM: EOMs intact bilaterally Direct Ophthalmoscopy: photophobia Neck: Neck: Yes normal visual inspection and Yes no meningeal signs Resp: Effort & Inspection: normal respiratory effort, not labored and no respiratory distress Cardio: Rate: regular rate GI: Inspection: Yes normal to inspection Palpation (GI): Soft to palpation, nontender, no guarding and not rigid Back/Spine/Pelvis: Other: No evidence of LP site infection/inflammation/cellulitis stopping Skin: Rashes: no rashes Wounds: no wounds Neuro: General: patient oriented x3, tone normal, moves all extremities, no meningeal signs, no focal motor deficits and CN's II-XI intact bilaterally Cranial nerves: Yes Equal, round and reactive pupils present Gait exam (Neuro): Shuffling gait present and Wide-based gait present Extrem: General: Yes normal to inspection Course Course Course Narrative: -spoke to Neurology , recommended blood patch, he will look at patient's outpatient neurology notes/imaging studies for further insight, likely patient has had MRI's/other imaging studies that do not need to repeated at this time -spoke to Anesthesia, plan for blood patch when out of OR -1410--on re-evaluation patient is sleeping comfortably -no leukocytosis, H&H stable, labs otherwise unremarkable -Anesthesia evaluated patient in the ED in did not believe epidural blood patche was indicated in patients case as symptoms are multifactorial and not purely typical, & potentially could make patient's symptoms worse with possible diagnosis of pseudotumor cerebri. -1610-on my re-evaluation patient is sitting up in stretcher, talking to family at bedside. Reports mild symptomatic improvement however still with head pressure and nausea. Additional medications ordered including Toradol, Zofran, Magnesium and Solu-Medrol -1700--patient requesting to be discharged reports symptomatic improvement, is dressed and sitting up at the edge of bed ready to leave. Discussed with patient worrisome symptoms and strict return precautions and importance of close follow-up with her neurologist. She verbalized understanding and feels safe for discharge home. MDM - Headache MDM Narrative Medical decision making narrative: 39-year-old female with a PMHx of bipolar, chronic back pain, chronic headaches, HTN, obesity, optic neuritis, and working diagnosis of MS, lumbar puncture on Sunday 07/09, presenting to the ED c/o severe headache s/p LP. Reports N/V, abdominal discomfort, and low back pain radiating down right lower extremity. Reports acute on chronic visual changes, blurry vision, photophobia, urinary incontinence, and difficulty ambulating. On exam mildly tachycardic, physical exam as above, no focal deficits, ambulating with unsteady/wide-based gait. Concern for post LP headache vs acute on chronic migraines. Lower concern for CVA/TIA/meningitis/encephalitis or ICH secondary to patient's symptoms being acute on chronic. No evidence LP site infection Plan: Labs, UA, consult Neurology and anesthesia Unable to see Neurology outpatient notes in system Medical Records Attestation: I reviewed the patient's medical records. Lab Data Attestation: I reviewed the patient's lab results. Result diagrams: 07/11/20 12:55 07/11/20 12:55 Labs: Lab Results 07/11/20 07/11/20 07/11/20 Range/Units 12:55 12:55 12:55 WBC 8.0 (4.8-10.8) X10*3/uL RBC 4.08 L (4.20-5.50) X10*6/uL Hgb 12.7 (12.0-16.0) g/dl Hct 38.3 (37-47) % MCV 93.9 (80-98) fL MCH 31.1 (27.0-33.0) pg MCHC 33.2 (31.0-35.0) g/dl RDW 13.4 (11.0-16.0) % Plt Count 290 (160-400) X10*3/uL MPV 8.9 L (9.4-12.3) fL Immature Gran % (Auto) 0.4 (0.0-0.4) % Neut % (Auto) 48.2 (45-73) % Lymph % (Auto) 33.4 (20-40) % Toombs % (Auto) 6.6 (2-11) % Eos % (Auto) 10.8 H (0-4) % Baso % (Auto) 0.6 (0-2) % Lymph # (Auto) 2.7 (1.2-4.9) X10*3/uL [place]ombs # (Auto) 0.5 (0.1-1.2) X10*3/uL Eos # (Auto) 0.9 H (0.0-0.4) X10*3/uL Baso # (Auto) 0.1 (0.0-0.2) X10*3/uL Abs Immat Gran (auto) 0.03 (0.00-0.03) X10*3/uL Absolute Neuts (auto) 3.9 (2.0-8.3) X10*3/uL Absolute Nucleated RBC 0.000 (0.0-0.012) X10*3/uL Nucleated RBC % (auto) 0.0 (0.0-0.2) /100WBC PT 9.8 L (10.8-13.0) SEC INR 0.8 L (0.9-1.1) APTT 34.1 (24.1-38.0) SEC Hold Blue Top SEE NOTE Sodium 139 (135-145) mmol/L Potassium 4.0 (3.3-5.1) mmol/L Chloride 111 H (96-108) mmol/L Carbon Dioxide 22 (22-29) mmol/L Anion Gap 10 L (12-20) BUN 20 H (9-16) mg/dL Creatinine 0.73 (0.5-1.4) mg/dL Estim Creat Clear Calc 108.9 Estimated GFR > 60 Random Glucose 83 (60-115) mg/dL Calcium 8.9 (8.4-10.2) mg/dL Magnesium 1.9 (1.6-2.6) mg/dL Total Bilirubin 0.2 (0.0-1.0) mg/dL Direct Bilirubin < 0.2 (0.0-0.5) mg/dL AST 14 (5-31) U/L ALT 18 (0-31) U/L Alkaline Phosphatase 75 (39-117) U/L Total Protein 6.1 L (6.5-8.0) g/dL Albumin 3.8 (3.5-5.0) g/dL Discharge Plan Discharge Clinical Impression: Headache Qualifiers: Headache type: unspecified Headache chronicity pattern: unspecified pattern Intractability: not intractable Qualified Code(s): R51.9 - Headache, unspecified Patient Disposition: Home, Self-Care Instructions: Acute Headache (ED) Additional Instructions: Your blood work was reassuring today in the ED It is important for you to follow-up with your neurologist [place]oricet is a headache/migraine medication, take as needed Zofran as antinausea medication Continue taking other home prescribed migraine medications If her headaches persist or worsen, become unbearable, you have weakness fever, visual change or loss, or unable to eat or drink please return to the ED Prescriptions: New ondansetron HCl [Zofran] 4 mg tablet 4 mg PO Q8H PRN (Reason: nausea and vomiting) Qty: 10 RF: 0 citwfegufs-srivnomlgoxlf-wcpf [Fioricet] 50-300-40 mg capsule 1 cap PO Q4-6H PRN (Reason: headache) Qty: 14 RF: 0 No Action cyclobenzaprine 10 mg tablet 10 mg PO TID PRN (Reason: muscle spasm) Qty: 14 RF: 0 famotidine [Pepcid] 20 mg tablet 20 mg PO DAILY PRN (Reason: abdominal discomfort) Qty: 30 RF: 0 ondansetron 4 mg tablet,disintegrating 4 mg PO Q8H PRN (Reason: nausea and vomiting) Qty: 20 RF: 0 dicyclomine 20 mg tablet 20 mg PO TID PRN (Reason: abdominal discomfort) Qty: 30 RF: 0 Referrals: Nasra Peng MD [Physician] - 3 days Interventions: ED Discharge Assessment Last Done: 07/11/20 17:12 Discharge Date/Time: 07/11/20 17:12
--- NOTE | 2020-07-11 14:46 | P.CONAN_ITS ---
History of Present Illness Consult details Consult date: 07/11/20 Narrative: Pt c/o headache for weeks, mostly in the eyes now, earlier she had occipital and nuchal pain as well. She was having w/u for pseudotumor cerebri as had higher intracanial pressure and MS with positive cerebral radiology findings along with leg weakness, optic neuritis. 2 days ago she had a diagnostic spinal tap and she continues to have COVINGTON. She was sitting on her stretcher, her pain just partially positional anyway, although she got meds in the ED. I had a detailed and lengthy discussion with her regarding epidural blood patch. Its indication highly questionable in her case, as her COVINGTON is not typical, it al so has other components and my even make her COVINGTON worse if she is having increasing ic pressure now. I suggested conservative treatment. Pt understood it and agreed with this plan. [facility] Past Medical History Medical History Bipolar 1 disorder Chronic back pain Chronic headaches Ectopic , tubal HTN (hypertension) Obesity Optic neuritis Surgical History Surgical History Bariatric surgery status H/O abdominoplasty Social History Social History Alcohol intake: never Smoked in Last 30 Days: No Use of substances other than those prescribed or required for medical reasons: No Advance Directives: Yes Advance Directives Information Provided: No Advance Directives on File: No Patient : No Meds Allergies Allergy/AdvReac Type Severity Reaction Status Date / Time Sulfa (Sulfonamide AdvReac Diarrhea Verified 07/11/20 11:17 Antibiotics) Active Medications: Current Medications Generic Name Dose Route Start Last Admin Trade Name Freq PRN Reason Stop Dose Admin Sodium Chloride 1,000 mls @ 999 mls/hr 07/11/20 14:15 07/11/20 14:24 Ns IVCONT 07/11/20 15:15 999 mls/hr .Q1H1M MITCH Administration Physical Exam Vital Signs: Vital Signs: Last Vital Signs Temp 98.2 F 07/11/20 11:11 Pulse 104 H 07/11/20 11:11 Resp 16 07/11/20 11:11 BP 122/73 07/11/20 11:11 Pulse Ox 100 07/11/20 11:11 Body Mass Index 35.0 Results Labs Result diagrams: 07/11/20 12:55 07/11/20 12:55 Labs: Abnormal lab results 07/11/20 07/11/20 07/11/20 Range/Units 12:55 12:55 12:55 RBC 4.08 L (4.20-5.50) X10*6/uL MPV 8.9 L (9.4-12.3) fL Eos % (Auto) 10.8 H (0-4) % Eos # (Auto) 0.9 H (0.0-0.4) X10*3/uL PT 9.8 L (10.8-13.0) SEC INR 0.8 L (0.9-1.1) Chloride 111 H (96-108) mmol/L Anion Gap 10 L (12-20) BUN 20 H (9-16) mg/dL Total Protein 6.1 L (6.5-8.0) g/dL Short CBC 07/11/20 Range/Units 12:55 WBC 8.0 (4.8-10.8) X10*3/uL Hgb 12.7 (12.0-16.0) g/dl Hct 38.3 (37-47) % Plt Count 290 (160-400) X10*3/uL BMP 07/11/20 12:55 Sodium 139 Potassium 4.0 Chloride 111 H Carbon Dioxide 22 BUN 20 H Creatinine 0.73 Calcium 8.9 Liver Function 07/11/20 Range/Units 12:55 Total Bilirubin 0.2 (0.0-1.0) mg/dL Direct Bilirubin < 0.2 (0.0-0.5) mg/dL AST 14 (5-31) U/L ALT 18 (0-31) U/L Alkaline Phosphatase 75 (39-117) U/L Albumin 3.8 (3.5-5.0) g/dL All other labs normal. Procedures Date of Service Date of Service: 07/11/20
[2020-07-11 15:32] VITALS: BP 128/69; PULSE 92; RESP 20; TEMP 36.8; O2SAT 98
[2020-07-11] MEDS: Magnesium Sulfate/H2O 2 GM/50 ML PIGGYBACK IV (16:11)
[2020-07-11] MEDS: Ketorolac Tromethamine 15 MG/ML VIAL IVPUSH (16:11)
--- NOTE | 2020-07-11 16:14 | PC.NURSE ---
medicated per emar, family at bedside. pt eating and drinking. pa aware
== END 2020-07-11 17:12 | disposition home or self-care (01) ==
PROVIDERS: Physician Assistant; Emergency Provider Internal Medicine
DX: R51.9 Headache, unspecified (principal); I10 Essential (primary) hypertension; Z87.891 Personal history of nicotine dependence
CPT/HCPCS: 36415; 80048; 80076; 83735; 85025; 85610; 85730; 96361; 96365; 96366; 96375; 96376; 99285; J1100; J1200; J1885; J2405; J2765; J3475

== ENCOUNTER 2020-07-12 20:28 | Observation (INO) | payer OTHER, SELFPAY ==
--- NOTE | ~2020-07-12 | CT_ITS ---
EXAMINATION: CT HEAD WITHOUT CONTRAST (STROKE) CTA NECK WITH CONTRAST (STROKE) CTA BRAIN WITH CONTRAST (STROKE) CLINICAL INFORMATION: Right weakness. Variable facial droop (left followed by right). Recent diagnosis of optic neuritis. Question of multiple sclerosis. COMPARISON: CT head dated 04/03/2018 TECHNIQUE: Noncontrast CT examination of the head was performed first. Test bolus sequences followed by intravenous administration 70 mL of Omnipaque 350intravenous contrast. Helical imaging was performed in the axial plane from the mediastinum to the skull vertex. Delayed postcontrast imaging of the head was also performed. The data was processed at the pathology laboratory technologist's workstation for generation of MIP sequences. Three-dimensional volume rendered reformatted images were also generated at an offline 3-D workstation. This CT examination was performed using dose optimization techniques as appropriate, variously including the following: *Automated exposure control *Adjustment of mA and/or kV according to patient size (this includes techniques or standardized protocols for targeted exams where dose is matched to indication/reason for exam; i.e. extremities or head) *Use of iterative reconstruction technique The degree of stenosis determined by NASCET criteria. DLP: 2371 mGy-cm FINDINGS: SOFT TISSUES AND LUNG APICES: No overt abnormality is appreciated. CTA NECK: The aortic arch has a classic configuration and the major arch vessel origins are non-stenotic. The vertebral arteries are co-dominant and both vertebral origins are widely patent. Both common carotid arteries are normal in course and caliber. Both internal carotid arteries demonstrate mild atherosclerotic plaque without significant stenosis. CTA HEAD: There is poor enhancement of the superior division of the LEFT M2 segments, as seen on series 12, images 423-453. Similarly, there is poor enhancement of the LEFT inferior divisions of M2 with tenuous blood flow throughout the M3 branches on the left. Similar, though less pronounced findings are present within the M3 branches on the RIGHT. Anterior cerebral arteries widely patent. Vertebrobasilar circulation is normal. No saccular aneurysms. There is regional oligemia to the left frontal operculum. HEAD (noncontrast and delayed): No intracranial mass, intercerebral edema, hemorrhage, or midline shift is evident. The ventricles and sulci are stable in size and configuration. No extra-axial collections are appreciated. No pathologic intracranial enhancement. Dural sinuses are patent. The paranasal sinuses are well-aerated and clear. CT/CT angio head neck stroke IMPRESSION: * There is diminutive, wispy enhancement of the superior division of the left M2, to lesser extent the inferior divisions of the left M2, with relative oligemia to the left frontal operculum. Similar though less pronounced findings are present involving the RIGHT M3 branches. While this may be artifactual, and related to poor bolus/technique, vasculitis could also have this appearance. * No large vessel occlusion within the intracranial or extracranial arterial vasculature. * No territorial infarct. This critical result was discussed with Dr George at 07/12/2020 9:41 PM and it was ascertained that the content and urgency of the report was understood at the time of direct communication.
--- NOTE | ~2020-07-12 | MR_ITS ---
EXAMINATION: MR CERVICAL SPINE WITHOUT CONTRAST CLINICAL INFORMATION: Weakness. COMPARISON: None available. TECHNIQUE: MRI of the cervical spine was obtained using routine sequences without contrast. FINDINGS: Normal anatomic alignment. Mild degenerative disc disease from C2-C5. Lipid rich hemangiomas within the C3 and C7 vertebral bodies. No suspicious marrow edema. The vertebral body heights are maintained. The spinal cord is normal in appearance. Limited evaluation of the soft tissues of the neck without demonstrated abnormalities. The flow voids of the major cervical vessels are maintained. Normal appearance of the cervicomedullary junction and visualized posterior fossa. Mild mucosal thickening of the visualized paranasal sinuses. SPINAL LEVELS: C2-C3: Minimal disc-osteophyte complex. There is no uncovertebral joint arthropathy. There is mild bilateral facet joint arthropathy. There is no neural foraminal stenosis. There is no spinal canal stenosis. C3-C4: Mild disc-osteophyte complex. There is no uncovertebral joint arthropathy. There is mild bilateral facet joint arthropathy. There is no neural foraminal stenosis. There is no spinal canal stenosis. C4-C5: Mild disc-osteophyte complex. There is mild bilateral uncovertebral joint arthropathy. There is mild to moderate bilateral facet joint arthropathy. There is mild right and no left neural foraminal stenosis. There is no spinal canal stenosis. C5-C6: Mild disc-osteophyte complex. There is mild bilateral uncovertebral joint arthropathy. There is moderate bilateral facet joint arthropathy. There is mild left and no right neural foraminal stenosis. There is no spinal canal stenosis. C6-C7: Normal annular contour. There is mild bilateral uncovertebral joint arthropathy. There is mild bilateral facet joint arthropathy. There is no neural foraminal stenosis. There is no spinal canal stenosis. C7-T1: Normal annular contour. There is no uncovertebral joint arthropathy. There is no facet joint arthropathy. There is no neural foraminal stenosis. There is no spinal canal stenosis. 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 Most notably, there are mild neural foraminal narrowings at C4-C5 and C5-C6. No overt spinal canal stenosis or nerve root compression.
--- NOTE | ~2020-07-12 | MR_ITS ---
EXAMINATION: MR BRAIN WITHOUT AND WITH CONTRAST CLINICAL INFORMATION: Headache. COMPARISON: CT angiogram of the head and neck 07/12/2020 TECHNIQUE: Multiplanar MR imaging of the brain was performed without and with contrast. A total of 10 mL Gadavist was utilized for this examination. FINDINGS: There is a small developing middle venous anomaly that traverses the right frontal centrum semiovale. Postcontrast images otherwise reveal no abnormal mass or enhancement within the intracranial compartment. No intracranial mass effect or midline shift. No abnormal extra-axial collection. Lateral and third ventricles are normal. No levels. Midline structures including the cervicomedullary junction are normal. No acute bone marrow signal changes. There is no acute territorial infarct. No pathological magnetic susceptibility artifact. Intracranial vascular flow voids are maintained. There is no mastoid middle ear effusion. There is mild mucosal thickening within ethmoid air cells and a few small retention cysts within the maxillary sinuses and sphenoid sinus. MR/MR head/brain wo/w con IMPRESSION: Unremarkable brain MRI. No evidence of acute territorial infarct or hemorrhage. No abnormal intracranial mass or enhancement.
[2020-07-12 20:31] VITALS: BP 155/91; PULSE 88; RESP 14; TEMP 36.6; O2SAT 100; BMI 38.7
--- NOTE | 2020-07-12 20:37 | ECG_ITS ---
Test Reason : AMS Blood Pressure : / mmHG Vent. Rate : 084 BPM Atrial Rate : 084 BPM P-R Int : 108 ms QRS Dur : 088 ms QT Int : 352 ms P-R-T Axes : 025 001 -09 degrees QTc Int : 415 ms Sinus rhythm with short MS Minimal voltage criteria for LVH, may be normal variant Borderline ECG When compared with ECG of 24-MAY-2020 14:02, No significant change was found Referred By: Angy Mcfarland Electronically Signed By:Amari Lancaster
[2020-07-12 20:45] LABS: Prothrombin Time Whole Bld POC 10.7 sec (11.1-13.5); ~PT, ~INR - Anti Coag Clinic 0.9 (0.9-1.1)
[2020-07-12 21:03] LABS: Basophils Percent Auto 0.4 % (0-2); Eosinophils Absolute Auto 0.3 X10*3/uL (0.0-0.4); Hematocrit 38.3 % (37-47); Hemoglobin 12.5 g/dl (12.0-16.0); Imm Gran Pct Auto 0.9 % (0.0-0.4); Lymphocytes Absolute Auto 3.6 X10*3/uL (1.2-4.9); Lymphocytes Percent Auto 31.7 % (20-40); MANUAL DIFF FLAG NO; Mean Corpuscular HGB Conc 32.6 g/dl (31.0-35.0); Mean Corpuscular Hemoglobin 30.9 pg (27.0-33.0); Mean Corpuscular Volume 94.6 fL (80-98); Mean Platelet Volume 9.3 fL (9.4-12.3); Monocytes Absolute Auto 0.6 X10*3/uL (0.1-1.2); Monocytes Percent Auto 5.6 % (2-11); Neutrophils Absolute Auto 6.6 X10*3/uL (2.0-8.3); Neutrophils Percent Auto 58.4 % (45-73); Platelet Count 327 X10*3/uL (160-400); Red Blood Count 4.05 X10*6/uL (4.20-5.50); Red Cell Distribution Width 13.6 % (11.0-16.0); White Blood Count 11.3 X10*3/uL (4.8-10.8)
[2020-07-12 21:08] LABS: Glucose Urine UA NEG (NEG); Leukocyte Esterase Urine NEG (NEG); Nitrite Urine NEG (NEG); PH 5.5 (5.0-8.0); Urine Blood NEG (NEG); Urine Ketones NEG (NEG); Urine Protein NEG (NEG-TRACE)
[2020-07-12 21:11] LABS: INTERNATIONAL NORM RATIO 0.9 (0.9-1.1); Prothrombin Time 10.5 SEC (10.8-13.0)
[2020-07-12 21:11] LABS: Appearance Urine CLEAR; Color Urine YELLOW
[2020-07-12 21:14] LABS: Partial Thromboplastin Time 31.9 SEC (24.1-38.0)
[2020-07-12 21:19] LABS: Ammonia 29 umol/L (13-55)
[2020-07-12 21:24] LABS: Ethanol < 10 mg/dL
[2020-07-12 21:27] LABS: Amphetamine Screen Urine Not Detected (Not Detect); Barbiturates, Urine POSITIVE (Not Detect); Benzodiazepines Screen Urine POSITIVE (Not Detect); Cannabinoid Screen Urine Not Detected (Not Detect); Cocaine Screen Urine Not Detected (Not Detect); Opiate Screen Urine Not Detected (Not Detect); Phencyclidine Screen Urine Not Detected (Not Detect)
[2020-07-12 21:29] VITALS: BP 123/77; PULSE 87; RESP 16; O2SAT 97
[2020-07-12 21:29] LABS: Alanine Aminotransferase 19 U/L (0-31); Albumin Level 4.1 g/dL (3.5-5.0); Alkaline Phosphatase 71 U/L (39-117); Aspartate Amino Transferase 13 U/L (5-31); Lipase 75 U/L (8-78); Magnesium 1.9 mg/dL (1.6-2.6); Total Protein 6.6 g/dL (6.5-8.0)
--- NOTE | 2020-07-12 21:35 | ED_ITS ---
HPI - Neuro Symptoms/Deficit General Chief Complaint: Stroke Stated Complaint: stroke alert Time Seen by Provider: 07/12/20 20:37 Source: patient Mode of arrival: ambulatory Limitations: no limitations History of Present Illness HPI Narrative: 39 years old female came in for evaluation and concern of stroke. This is a 39 years old female walked into the emergency department for right facial droop and left side weakness that started at 20:30 (1 hour before presentation). Patient also mentioned that 4 hours ago she lost vision in her lateral visual field of the right eye. Patient was evaluated initially in the emergency department as a stroke protocol and sent for a CT head, the nurse accompanied the patient noted that patient's right-sided facial droop became left-sided facial droops when that was mentioned to the patient the patient became right facial droop again and the left facial droop was corrected (reportedly by the nurse), patient moved to room [address] scan I want re-examined the patient and reassess her, patient has right facial droop and left hemiparesis. Patient is well known to Dr. Peng our neurologist seen for pseudotumor cerebri/optic neuritis, also recently had LP done likely to rule out MS, patient presented yesterday to the ED with headache and was evaluated by Dr. Garcia in the emergency department patient was sent home and came back again with the above symptoms. Related Data Previous Rx's Medication Instructions Recorded cyclobenzaprine 10 mg PO TID PRN #14 tab 03/12/20 dicyclomine 20 mg PO TID PRN #30 tab 03/12/20 famotidine [Pepcid] 20 mg PO DAILY PRN #30 tab 03/12/20 ondansetron 4 mg PO Q8H PRN #20 tab 03/12/20 ztykcxfmnn-rghyyfmlzyvgq-[id number] 1 cap PO Q4-6H PRN #14 cap 07/11/20 [Fioricet] ondansetron HCl [Zofran] 4 mg PO Q8H PRN #10 tab 07/11/20 Allergies Allergy/AdvReac Type Severity Reaction Status Date / Time Sulfa (Sulfonamide AdvReac Diarrhea Verified 07/12/20 21:45 Antibiotics) Review of Systems Review of Systems: All other systems are reviewed and are negative Constitutional: Reports as per HPI and Reports no additional constitutional complaints Eyes: Reports as per HPI and Reports no additional eye complaints Reports system reviewed and no additional complaints, except as documented Cardiovascular: Reports as per HPI and Reports no additional cardiovascular complaints Respiratory: Reports as per HPI and Reports no additional respiratory complaints Gastrointestinal: Reports as per HPI and Reports no additional gastrointestinal complaints Genitourinary: Reports no additional female genitourinary complaints Musculoskeletal: Reports no additional musculoskeletal complaints Skin/Breast: Reports system reviewed and no additional complaints, except as docu Psychiatric: Reports no additional psychiatric complaints Endocrine: Reports no additional endocrine complaints Hematologic/Lymphatic: Reports no additional hematologic/lymphatic complaints Allergic/Immunologic: Reports no additional allergic/immunologic complaints Reports system reviewed and no additional complaints, except as documented and Reports Abnormal speech present [facility] Past Medical History Medical History Bipolar 1 disorder Chronic back pain Chronic headaches Ectopic , tubal HTN (hypertension) Obesity Optic neuritis Surgical History Bariatric surgery status H/O abdominoplasty Social History Social History Alcohol intake: never Advance Directives: No Advance Directives Information Provided: No Patient : No Physical Exam Vital Signs: Vital Signs: Last Vital Signs Pulse 87 07/12/20 21:29 Resp 16 07/12/20 21:29 BP 123/77 07/12/20 21:29 Pulse Ox 97 07/12/20 21:29 Vital signs have been reviewed as appeared to be correct. Blood pressure normal. Heart rate normal. Respiration rate normal. Temperature normal. Oxygen saturation normal. Appearance: Alert. Oriented X3. No acute distress. Head: Normal external exam. Normocephalic. Atraumatic. No Brooks signs noted. No raccoon eyes noted Eyes: PERRLA. EOMI. Conjunctiva and sclera normal. Eyelids normal. ENT: TM's Normal. Pharynx normal. Uvula midline. Moist mucous membranes. No trismus noted. No drooling noted. No muffled voice noted. Neck: Normal inspection. Neck supple. FROM. No adenopathy. Thyroid Normal. No meningeal signs. No neck mass noted. CVS: Normal heart rate and rhythm. Heart sound normal. No murmurs noted. Pulses normal throughout. Respiratory: No respiratory distress. Painless inspiration. Breath sounds normal. No wheezes/rales/rhonchi noted. Chest nontender. No accessory muscle usage noted or decreased air movement noted. Abdomen: Soft and nontender. Bowel sounds normal in all 4 quadrants. No distention noted. No organomegaly noted. No visible injury noted. Back: No CVA tenderness. Full range of motion noted. Skin: Skin warm and dry. Normal skin color. Normal skin turgor. No rashes/lesions/lacerations noted. Extremities: No lower extremity edema. Extremities exhibit normal range of motion. Extremities nontender. Neuro: Oriented X 3. Right facial droop, with left hemiparesis please refer to NIH stroke score scale. No sensory deficit. Reflexes normal. Course Course Course Narrative: Assessment and plan. 39year-old female with known past neurologica problems been followed by our neurologist Dr. Peng, was seen here yesterday in the emergency department for headache after lumbar puncture, patient returned today with right facial droop and left side weakness. The case discussed with Dr. Garcia our neurologist who is somehow familiar with the patient's history who recommended just to admit the patient for further neurological study including MRI, recommended against tPA since the patient is symptoms is fluctuating and changing and also patient has been having right facial droop with left hemiparesis which does not make anatomical sense, with negative CT head and negative CTA of the head and neck also in favor that the patient does not have a stroke related symptoms. Will give patient aspirin and admit for further neurological studies. MDM - Neuro Symptoms/Deficit Lab Data Result diagrams: 07/12/20 20:37 07/12/20 20:50 Labs: Lab Results 07/12/20 07/12/20 07/12/20 Range/Units 20:37 20:37 20:49 WBC 11.3 H (4.8-10.8) X10*3/uL RBC 4.05 L (4.20-5.50) X10*6/uL Hgb 12.5 (12.0-16.0) g/dl Hct 38.3 (37-47) % MCV 94.6 (80-98) fL MCH 30.9 (27.0-33.0) pg MCHC 32.6 (31.0-35.0) g/dl RDW 13.6 (11.0-16.0) % Plt Count 327 (160-400) X10*3/uL MPV 9.3 L (9.4-12.3) fL Immature Gran % (Auto) 0.9 H (0.0-0.4) % Neut % (Auto) 58.4 (45-73) % Lymph % (Auto) 31.7 (20-40) % Tyrrell % (Auto) 5.6 (2-11) % Eos % (Auto) 3.0 (0-4) % Baso % (Auto) 0.4 (0-2) % Lymph # (Auto) 3.6 (1.2-4.9) X10*3/uL Tyrrell # (Auto) 0.6 (0.1-1.2) X10*3/uL Eos # (Auto) 0.3 (0.0-0.4) X10*3/uL Baso # (Auto) 0.0 (0.0-0.2) X10*3/uL Abs Immat Gran (auto) 0.10 H (0.00-0.03) X10*3/uL Absolute Neuts (auto) 6.6 (2.0-8.3) X10*3/uL Absolute Nucleated RBC 0.000 (0.0-0.012) X10*3/uL Nucleated RBC % (auto) 0.0 (0.0-0.2) /100WBC PT (10.8-13.0) SEC Whole Blood PT 10.7 L (11.1-13.5) sec INR (0.9-1.1) Whole Blood INR 0.9 (0.9-1.1) APTT (24.1-38.0) SEC Magnesium (1.6-2.6) mg/dL AST (5-31) U/L ALT (0-31) U/L Alkaline Phosphatase (39-117) U/L Ammonia (13-55) umol/L Total Protein (6.5-8.0) g/dL Albumin (3.5-5.0) g/dL Lipase (8-78) U/L Urine Color YELLOW Urine Appearance CLEAR Urine pH 5.5 (5.0-8.0) Ur Specific [place] 1.010 (1.005-1.025) Urine Protein NEG (NEG-TRACE) MG/DL Urine Glucose (UA) NEG (NEG) MG/DL Urine Ketones NEG (NEG) MG/DL Urine Blood NEG (NEG) Urine Nitrite NEG (NEG) Ur Leukocyte Esterase NEG (NEG) Urine Opiates Screen (Not Detect) Ur Barbiturates Screen (Not Detect) Ur Phencyclidine Scrn (Not Detect) Ur Amphetamines Screen (Not Detect) U Benzodiazepines Scrn (Not Detect) Urine Cocaine Screen (Not Detect) U Marijuana (THC) Screen (Not Detect) Ethyl Alcohol mg/dL 07/12/20 07/12/20 07/12/20 Range/Units 20:49 20:50 20:50 WBC (4.8-10.8) X10*3/uL RBC (4.20-5.50) X10*6/uL Hgb (12.0-16.0) g/dl Hct (37-47) % MCV (80-98) fL MCH (27.0-33.0) pg MCHC (31.0-35.0) g/dl RDW (11.0-16.0) % Plt Count (160-400) X10*3/uL MPV (9.4-12.3) fL Immature Gran % (Auto) (0.0-0.4) % Neut % (Auto) (45-73) % Lymph % (Auto) (20-40) % Tyrrell % (Auto) (2-11) % Eos % (Auto) (0-4) % Baso % (Auto) (0-2) % Lymph # (Auto) (1.2-4.9) X10*3/uL Tyrrell # (Auto) (0.1-1.2) X10*3/uL Eos # (Auto) (0.0-0.4) X10*3/uL Baso # (Auto) (0.0-0.2) X10*3/uL Abs Immat Gran (auto) (0.00-0.03) X10*3/uL Absolute Neuts (auto) (2.0-8.3) X10*3/uL Absolute Nucleated RBC (0.0-0.012) X10*3/uL Nucleated RBC % (auto) (0.0-0.2) /100WBC PT (10.8-13.0) SEC Whole Blood PT (11.1-13.5) sec INR (0.9-1.1) Whole Blood INR (0.9-1.1) APTT (24.1-38.0) SEC Magnesium (1.6-2.6) mg/dL AST (5-31) U/L ALT (0-31) U/L Alkaline Phosphatase (39-117) U/L Ammonia 29 (13-55) umol/L Total Protein (6.5-8.0) g/dL Albumin (3.5-5.0) g/dL Lipase (8-78) U/L Urine Color Urine Appearance Urine pH (5.0-8.0) Ur Specific [place] (1.005-1.025) Urine Protein (NEG-TRACE) MG/DL Urine Glucose (UA) (NEG) MG/DL Urine Ketones (NEG) MG/DL Urine Blood (NEG) Urine Nitrite (NEG) Ur Leukocyte Esterase (NEG) Urine Opiates Screen Not Detected (Not Detect) Ur Barbiturates Screen POSITIVE H (Not Detect) Ur Phencyclidine Scrn Not Detected (Not Detect) Ur Amphetamines Screen Not Detected (Not Detect) U Benzodiazepines Scrn POSITIVE H (Not Detect) Urine Cocaine Screen Not Detected (Not Detect) U Marijuana (THC) Screen Not Detected (Not Detect) Ethyl Alcohol < 10 mg/dL 07/12/20 07/12/20 Range/Units 20:50 20:55 WBC (4.8-10.8) X10*3/uL RBC (4.20-5.50) X10*6/uL Hgb (12.0-16.0) g/dl Hct (37-47) % MCV (80-98) fL MCH (27.0-33.0) pg MCHC (31.0-35.0) g/dl RDW (11.0-16.0) % Plt Count (160-400) X10*3/uL MPV (9.4-12.3) fL Immature Gran % (Auto) (0.0-0.4) % Neut % (Auto) (45-73) % Lymph % (Auto) (20-40) % Tyrrell % (Auto) (2-11) % Eos % (Auto) (0-4) % Baso % (Auto) (0-2) % Lymph # (Auto) (1.2-4.9) X10*3/uL Tyrrell # (Auto) (0.1-1.2) X10*3/uL Eos # (Auto) (0.0-0.4) X10*3/uL Baso # (Auto) (0.0-0.2) X10*3/uL Abs Immat Gran (auto) (0.00-0.03) X10*3/uL Absolute Neuts (auto) (2.0-8.3) X10*3/uL Absolute Nucleated RBC (0.0-0.012) X10*3/uL Nucleated RBC % (auto) (0.0-0.2) /100WBC PT 10.5 L (10.8-13.0) SEC Whole Blood PT (11.1-13.5) sec INR 0.9 (0.9-1.1) Whole Blood INR (0.9-1.1) APTT 31.9 (24.1-38.0) SEC Magnesium 1.9 (1.6-2.6) mg/dL AST 13 (5-31) U/L ALT 19 (0-31) U/L Alkaline Phosphatase 71 (39-117) U/L Ammonia (13-55) umol/L Total Protein 6.6 (6.5-8.0) g/dL Albumin 4.1 (3.5-5.0) g/dL Lipase 75 (8-78) U/L Urine Color Urine Appearance Urine pH (5.0-8.0) Ur Specific [place] (1.005-1.025) Urine Protein (NEG-TRACE) MG/DL Urine Glucose (UA) (NEG) MG/DL Urine Ketones (NEG) MG/DL Urine Blood (NEG) Urine Nitrite (NEG) Ur Leukocyte Esterase (NEG) Urine Opiates Screen (Not Detect) Ur Barbiturates Screen (Not Detect) Ur Phencyclidine Scrn (Not Detect) Ur Amphetamines Screen (Not Detect) U Benzodiazepines Scrn (Not Detect) Urine Cocaine Screen (Not Detect) U Marijuana (THC) Screen (Not Detect) Ethyl Alcohol mg/dL Imaging Data CT scan - head: Radiologist's impression: No acute intracranial pathology CTA head and neck: Radiologist's impression: Preliminaries a report sub adequate study, but no obvious thrombotic exclusion of intracerebral arteries. ECG Data Interpretation: Normal sinus rhythm at 84 beats per minutes, short NM interval otherwise unremarkable intervals, left axis deviation, no ST-T changes. NIH Stroke Scale Level of Consciousness: Alert Level of Consciousness Questions: Answers both questions correctly Level of Consciousness Commands: Performs both tasks correctly Best Gaze: Normal Visual: Partial hemianopia (Right temporal visual field.) Facial Palsy: Partial paralysis (Right facial side) Motor Arm (Right): No drift Motor Arm (Left): Drift Motor Leg (Right): No drift Motor Leg (Left): Drift Limb Ataxia: Absent Sensory: Mild to moderate sensory loss Best Language: No aphasia Dysarthia: Mild to moderate dysarthria Extinction and Inattention: No abnormality Score: 7 Discharge Plan Discharge Clinical Impression: Acute focal neurological deficit, onset within 3 hours Patient Disposition: Admitted As Inpatient Prescriptions: No Action ondansetron HCl [Zofran] 4 mg tablet 4 mg PO Q8H PRN (Reason: nausea and vomiting) Qty: 10 RF: 0 vqyircxzrg-ilfwjrnzzxzsj-phsv [Fioricet] 50-300-40 mg capsule 1 cap PO Q4-6H PRN (Reason: headache) Qty: 14 RF: 0 cyclobenzaprine 10 mg tablet 10 mg PO TID PRN (Reason: muscle spasm) Qty: 14 RF: 0 famotidine [Pepcid] 20 mg tablet 20 mg PO DAILY PRN (Reason: abdominal discomfort) Qty: 30 RF: 0 ondansetron 4 mg tablet,disintegrating 4 mg PO Q8H PRN (Reason: nausea and vomiting) Qty: 20 RF: 0 dicyclomine 20 mg tablet 20 mg PO TID PRN (Reason: abdominal discomfort) Qty: 30 RF: 0
[2020-07-12 21:38] LABS: Glucose, Whole Blood 78 mg/dL (60-115)
[2020-07-12] MEDS: iohexoL 350 MG/ML 100 ML INFUS..BTL 70 ML IV (21:38)
[2020-07-12 21:39] LABS: VBG Base Excess -6.4 mmol/L; VBG HCO3 18 mmol/L (22-26); VBG pCO2 35 mmHg; VBG pH 7.32 (7.32-7.43); VBG pO2 54 mmHg
[2020-07-12 21:39] LABS: Venous Blood Gas Refer to POC result
[2020-07-12 21:42] LABS: Acetaminophen LAB 4 mcg/mL (<30); Bilirubin Direct < 0.2 mg/dL (0.0-0.5); Bilirubin Total 0.2 mg/dL (0.0-1.0)
[2020-07-12 21:43] LABS: Anion Gap 13 (12-20); Blood Urea Nitrogen 13 mg/dL (9-16); Calcium 8.7 mg/dL (8.4-10.2); Carbon Dioxide 20 mmol/L (22-29); Chloride 114 mmol/L (96-108); Creatinine Clr Calc Pharmacy 104.9; Estimated Glomerular Filt Rate > 60; Glucose Random 88 mg/dL (60-115); Potassium 3.6 mmol/L (3.3-5.1); Sodium 143 mmol/L (135-145)
[2020-07-12 21:44] LABS: Troponin-I High Sensitivity 3.5 ng/L (<3.5-17.0)
[2020-07-12 21:48] LABS: Thyroid Stimulating Hormone 0.66 uIU/mL (0.32-4.0)
[2020-07-12 21:51] VITALS: BP 122/82; PULSE 88; RESP 20; O2SAT 100
[2020-07-12 21:52] LABS: COVID-19 Test Negative (Negative)
[2020-07-12 22:28] VITALS: BP 125/78; PULSE 94; RESP 17; O2SAT 100
--- NOTE | 2020-07-12 22:36 | PC.NURSE ---
Dr Brewer made aware pt cannot have PO aspirin d/t pt failing swallow screen for drooling
[2020-07-12] MEDS: Aspirin 300 MG SUPP.RECT PR (22:56)
--- NOTE | 2020-07-12 23:10 | P.HPHOSP_ITS ---
History of Present Illness Date of Service: 07/12/20 Chief Complaint: vision loss, weakness 35-year-old female with past medical history of bipolar disorder, hypertension, of took neuritis, pseudotumor cerebri which she reports is in the past and is no longer active, currently being worked up for MS who presents hospital, with multiple complaints that initially started with right eye blindness, progressed to slurring of her speech, left-sided weakness (initially on arrival to the ED she reported right facial droopiness and weakness but when I saw her she was telling me is on left side), as well as numbness on the left side upper and lower extremity. It appears the throughout her ED stay patient's story changed as well as her symptoms of weakness and facial droop. Patient reported to me that she has numbness only of her left arm and leg but when I asked her if she has weakness then she said yes. Well getting the CT scan as ordered by the neurologist for stroke protocol patient changed this low redness of her face from right to left and therefore the symptoms are quite unclear and suspicious. Patient reports that her symptoms started about 4-5 hours prior to presentation. Of note she was seen in the ED the day prior for headache, Neurology was consulted, patient was given supportive measures and sent home. She currently reports no headache, but feels extremely tired, no nausea or vomiting, feels constipated, she is scheduled for an LP on Sunday by the neurologist for the workup of MS, she denies any abdominal pain, no urinary symptoms, although reports loss of bladder control over the past few weeks, no lower extremity edema. On arrival to the ED patient's vital significant for temp of 97.9?, heart rate of 88, respiratory rate of 14, blood pressure 155/91, satting 100% on room air Labs are significant for WBC count of 11.3 (8 the day prior, hemoglobin of 12.5, PT of 10.5, INR of 0.9, pH of 7.32, with no other abnormalities in the VBG, sodium of 143, potassium 3.6, with no other abnormalities. UA negative, UDS positive for barbiturates as well as benzodiazepine, Head and neck CT angiogram shows diminutive wispy enhancement of superior division of the left M2 to lesser extent the inferior division of the left M2 with relative oligemia to the left frontal operculum. Similar though less pronounced findings are present involving the right M3 branches. This may be artifactual and related to poor bolus technique, vasculitis could also have this appearance. No large vessel occlusion within the intracranial or extracranial arterial vasculature. No territory infarct Past medical history as below Review of Systems Review of Systems: Yes all other systems are reviewed and are negative [facility] Medical History Bipolar 1 disorder Chronic back pain Chronic headaches Ectopic , tubal HTN (hypertension) Obesity Optic neuritis Surgical History Bariatric surgery status H/O abdominoplasty Social History Household Members: Children Housing: Apartment Do you presently have visiting nurse or other home services: No Alcohol intake: never Patient Tobacco Use Status: Former Tobacco user Smoked in Last 30 Days: No Patient Interested in Nicotine Replacement: No Patient Given Instructions on How to Stop Smoking: No Second Hand Smoke Exposure: No Use of substances other than those prescribed or required for medical reasons: No Currently Displaying Signs/Symptoms of Drug Intoxication Withdrawal: No Any prior treatment program specific to substance use: No Have you been hit, kicked, punched, or otherwise hurt by someone within the past year? If so, by whom?: No Do you feel safe in your current relationship?: Yes Is there a partner from a previous relationship who is making you feel unsafe now?: No Are you made to feel afraid or neglected: No Advance Directives: No Advance Directives Information Provided: No Do you have thoughts of harming others: None Do you have a plan to hurt others: No Plan Recently lost weight without trying: No Nutrition Risks: No Nutritional Risk Patient : No : No Poor oral hygiene: No Meds Allergies Allergy/AdvReac Type Severity Reaction Status Date / Time Sulfa (Sulfonamide AdvReac Diarrhea Verified 07/12/20 21:45 Antibiotics) Home Medications Medication Instructions Recorded Confirmed Last Taken Type albuterol sulfate [ProAir HFA] 90 mcg INHALATION PRN 07/12/20 Unknown History clonidine HCl 1 tab PO TID 07/12/20 07/12/20 Unknown History gabapentin [Neurontin] 600 mg PO 07/12/20 Unknown History lamotrigine 25 mg PO DAILY 07/12/20 07/12/20 Unknown History sumatriptan succinate 100 mg PO 07/12/20 Unknown History topiramate 50 mg PO 07/12/20 Unknown History trazodone 50 mg PO 07/12/20 Unknown History Physical Exam Vital Signs and Narrative: Vital Signs: Last Vital Signs Temp 97.9 F 07/12/20 20:31 Pulse 94 07/12/20 22:28 Resp 17 07/12/20 22:28 BP 125/78 07/12/20 22:28 Pulse Ox 100 07/12/20 22:28 Body Mass Index 38.7 Const: General: cooperative Orientation/consciousness: patient oriented x3 Eyes: General: appearance normal, both eyes and all related structures Resp: Effort & Inspection: normal respiratory effort and able to speak in complete sentences Cardio: Rate: regular rate Rhythm: regular rhythm GI: Palpation (GI): Soft to palpation Auscultation: normal bowel sounds Skin: General skin exam: no rashes or lesions noted Neuro: Other: Patient has drooping of the left side of her mouth although only when talking, with and she is relaxed and smiling the droopiness this appears, when she is not talking or distracted droopiness disappears. She has no slurred speech, when asked her to stick out her tongue, she refused stating that it is weak although she was conversing completely fine with me, had to prompt her multiple x2 stick out her tongue and wiggle side to side with no deviation In regards to extremities, patient has 0/5 strength in upper and lower extremities although for nurses she was able to move her arms and legs. General: patient oriented x3 Cognition (Neuro): normal cognition Extrem: General: Yes normal to inspection and Yes no pedal edema Results Labs CBC and Chem 7: 07/12/20 20:37 07/12/20 20:50 Labs: Laboratory Results - last 24 hr 07/12/20 07/12/20 07/12/20 20:37 20:37 20:37 MCV 94.6 MCH 30.9 MCHC 32.6 RDW 13.6 Plt Count 327 MPV 9.3 L Immature Gran % (Auto) 0.9 H Neut % (Auto) 58.4 Lymph % (Auto) 31.7 [place] % (Auto) 5.6 Eos % (Auto) 3.0 Baso % (Auto) 0.4 Lymph # (Auto) 3.6 [place] # (Auto) 0.6 Eos # (Auto) 0.3 Baso # (Auto) 0.0 Abs Immat Gran (auto) 0.10 H Absolute Neuts (auto) 6.6 Absolute Nucleated RBC 0.000 Nucleated RBC % (auto) 0.0 PT Whole Blood PT 10.7 L INR Whole Blood INR 0.9 APTT VBG pH VBG pCO2 VBG pO2 VBG HCO3 VBG O2 Saturation VBG Base Excess Anion Gap Estim Creat Clear Calc Estimated GFR POC Glucose 78 Random Glucose Calcium Magnesium Total Bilirubin Direct Bilirubin AST ALT Alkaline Phosphatase Ammonia Troponin I High Sens Total Protein Albumin Lipase TSH Urine Color Urine Appearance Urine pH Ur Specific [place] Urine Protein Urine Glucose (UA) Urine Ketones Urine Blood Urine Nitrite Ur Leukocyte Esterase Urine Opiates Screen Acetaminophen Ur Barbiturates Screen Ur Phencyclidine Scrn Ur Amphetamines Screen U Benzodiazepines Scrn Urine Cocaine Screen U Marijuana (THC) Screen Ethyl Alcohol COVID-19 ([facility]ILLY) COVID-19 [employer] 07/12/20 07/12/20 07/12/20 20:49 20:49 20:49 MCV MCH MCHC RDW Plt Count MPV Immature Gran % (Auto) Neut % (Auto) Lymph % (Auto) [place] % (Auto) Eos % (Auto) Baso % (Auto) Lymph # (Auto) [place] # (Auto) Eos # (Auto) Baso # (Auto) Abs Immat Gran (auto) Absolute Neuts (auto) Absolute Nucleated RBC Nucleated RBC % (auto) PT Whole Blood PT INR Whole Blood INR APTT VBG pH VBG pCO2 VBG pO2 VBG HCO3 VBG O2 Saturation VBG Base Excess Anion Gap Estim Creat Clear Calc Estimated GFR POC Glucose Random Glucose Calcium Magnesium Total Bilirubin Direct Bilirubin AST ALT Alkaline Phosphatase Ammonia Troponin I High Sens 3.5 Total Protein Albumin Lipase TSH Urine Color YELLOW Urine Appearance CLEAR Urine pH 5.5 Ur Specific [place] 1.010 Urine Protein NEG Urine Glucose (UA) NEG Urine Ketones NEG Urine Blood NEG Urine Nitrite NEG Ur Leukocyte Esterase NEG Urine Opiates Screen Not Detected Acetaminophen Ur Barbiturates Screen POSITIVE H Ur Phencyclidine Scrn Not Detected Ur Amphetamines Screen Not Detected U Benzodiazepines Scrn POSITIVE H Urine Cocaine Screen Not Detected U Marijuana (THC) Screen Not Detected Ethyl Alcohol COVID-19 (REILLY) COVID-19 [employer] 07/12/20 07/12/20 07/12/20 20:50 20:50 20:50 MCV MCH MCHC RDW Plt Count MPV Immature Gran % (Auto) Neut % (Auto) Lymph % (Auto) [place] % (Auto) Eos % (Auto) Baso % (Auto) Lymph # (Auto) [place] # (Auto) Eos # (Auto) Baso # (Auto) Abs Immat Gran (auto) Absolute Neuts (auto) Absolute Nucleated RBC Nucleated RBC % (auto) PT Whole Blood PT INR Whole Blood INR APTT VBG pH VBG pCO2 VBG pO2 VBG HCO3 VBG O2 Saturation VBG Base Excess Anion Gap 13 Estim Creat Clear Calc 104.9 Estimated GFR > 60 POC Glucose Random Glucose 88 Calcium 8.7 Magnesium Total Bilirubin Direct Bilirubin AST ALT Alkaline Phosphatase Ammonia 29 Troponin I High Sens Total Protein Albumin Lipase TSH Urine Color Urine Appearance Urine pH Ur Specific [place] Urine Protein Urine Glucose (UA) Urine Ketones Urine Blood Urine Nitrite Ur Leukocyte Esterase Urine Opiates Screen Acetaminophen Ur Barbiturates Screen Ur Phencyclidine Scrn Ur Amphetamines Screen U Benzodiazepines Scrn Urine Cocaine Screen U Marijuana (THC) Screen Ethyl Alcohol < 10 COVID-19 (REILLY) COVID-19 [employer] 07/12/20 07/12/20 07/12/20 20:50 20:55 21:26 MCV MCH MCHC RDW Plt Count MPV Immature Gran % (Auto) Neut % (Auto) Lymph % (Auto) [place] % (Auto) Eos % (Auto) Baso % (Auto) Lymph # (Auto) [place] # (Auto) Eos # (Auto) Baso # (Auto) Abs Immat Gran (auto) Absolute Neuts (auto) Absolute Nucleated RBC Nucleated RBC % (auto) PT 10.5 L Whole Blood PT INR 0.9 Whole Blood INR APTT 31.9 VBG pH VBG pCO2 VBG pO2 VBG HCO3 VBG O2 Saturation VBG Base Excess Anion Gap Estim Creat Clear Calc Estimated GFR POC Glucose Random Glucose Calcium Magnesium 1.9 Total Bilirubin 0.2 Direct Bilirubin < 0.2 AST 13 ALT 19 Alkaline Phosphatase 71 Ammonia Troponin I High Sens Total Protein 6.6 Albumin 4.1 Lipase 75 TSH 0.66 Urine Color Urine Appearance Urine pH Ur Specific [place] Urine Protein Urine Glucose (UA) Urine Ketones Urine Blood Urine Nitrite Ur Leukocyte Esterase Urine Opiates Screen Acetaminophen 4 Ur Barbiturates Screen Ur Phencyclidine Scrn Ur Amphetamines Screen U Benzodiazepines Scrn Urine Cocaine Screen U Marijuana (THC) Screen Ethyl Alcohol COVID-19 ([facility]Y) Negative COVID-19 Clin Com See Note 07/12/20 21:31 MCV MCH MCHC RDW Plt Count MPV Immature Gran % (Auto) Neut % (Auto) Lymph % (Auto) [place] % (Auto) Eos % (Auto) Baso % (Auto) Lymph # (Auto) [place] # (Auto) Eos # (Auto) Baso # (Auto) Abs Immat Gran (auto) Absolute Neuts (auto) Absolute Nucleated RBC Nucleated RBC % (auto) PT Whole Blood PT INR Whole Blood INR APTT VBG pH 7.32 VBG pCO2 35 VBG pO2 54 VBG HCO3 18 L VBG O2 Saturation 85.0 VBG Base Excess -6.4 Anion Gap Estim Creat Clear Calc Estimated GFR POC Glucose Random Glucose Calcium Magnesium Total Bilirubin Direct Bilirubin AST ALT Alkaline Phosphatase Ammonia Troponin I High Sens Total Protein Albumin Lipase TSH Urine Color Urine Appearance Urine pH Ur Specific [place] Urine Protein Urine Glucose (UA) Urine Ketones Urine Blood Urine Nitrite Ur Leukocyte Esterase Urine Opiates Screen Acetaminophen Ur Barbiturates Screen Ur Phencyclidine Scrn Ur Amphetamines Screen U Benzodiazepines Scrn Urine Cocaine Screen U Marijuana (THC) Screen Ethyl Alcohol COVID-19 ([facility]) COVID-19 Clin Com Imaging Radiologist's Impressions: Impressions Head/Neck CTA 07/12/20 20:37 IMPRESSION: * There is diminutive, wispy enhancement of the superior division of the left M2, to lesser extent the inferior divisions of the left M2, with relative oligemia to the left frontal operculum. Similar though less pronounced findings are present involving the RIGHT M3 branches. While this may be artifactual, and related to poor bolus/technique, vasculitis could also have this appearance. * No large vessel occlusion within the intracranial or extracranial arterial vasculature. * No territorial infarct. This critical result was discussed with Dr George at 07/12/2020 9:41 PM and it was ascertained that the content and urgency of the report was understood at the time of direct communication. Assessment and Plan (1) Focal neurological deficit: Status: Acute This is a 39-year-old female with past medical history of pseudotumor cerebri, who presents to the hospital with complaints of slurred speech, facial droopiness, and left-sided weakness # focal neurological deficits - possible CVA although less likely - include upper and lower extremity weakness on the left, left facial droop - this case was discussed with Neurology who felt the patient may require MRI in a.m. although no tPA was ordered or administered and not recommended by Neurology - CT angiogram shows changes post coulee secondary to artifact versus vasculitis with no evidence of occlusion or infarct - patient was given aspirin rectally as she failed bedside swallow - will consult Neurology to evaluate patient in a.m., and will defer ordering MRI per Neurology # pseudotumor cerebri - patient reports had this in the past and currently not suffering from it - no headache - Tylenol p.r.n. rectally # bipolar disorder - does not appear to be on any medications - monitor DVT prophylaxis: Heparin subQ
[2020-07-12 23:24] VITALS: BP 135/90; PULSE 84; RESP 18; TEMP 36.9; O2SAT 100
[2020-07-13] VITALS (8 sets, daily range): BP systolic 108–135; BP diastolic 55–78; PULSE 82–94; RESP 14–20; TEMP 36.6–36.8; O2SAT 95–100
[2020-07-13] MEDS: Heparin Sodium,Porcine 5,000 UNIT/ML VIAL 5000 UNIT SUBCUT ×3 (00:04→23:42)
[2020-07-13] MEDS: Acetaminophen Supp 650 MG SUPP.RECT PR (00:04)
[2020-07-13] MEDS: 0.9 % Sodium Chloride Flush 3 ML SYRINGE IVFLUSH ×4 (00:05→23:47)
[2020-07-13] MEDS: Ketorolac Tromethamine 15 MG/ML VIAL IVPUSH (06:08)
[2020-07-13 07:08] LABS: MANUAL DIFF FLAG NO
[2020-07-13 07:26] LABS: Basophils Absolute Auto 0.1 X10*3/uL (0.0-0.2); Basophils Percent Auto 0.6 % (0-2); Eosinophils Absolute Auto 0.6 X10*3/uL (0.0-0.4); Eosinophils Percent Auto 6.9 % (0-4); Hematocrit 36.4 % (37-47); Imm Gran Abs Auto 0.05 X10*3/uL (0.00-0.03); Imm Gran Pct Auto 0.6 % (0.0-0.4); Lymphocytes Absolute Auto 3.8 X10*3/uL (1.2-4.9); Lymphocytes Percent Auto 43.1 % (20-40); Mean Corpuscular Hemoglobin 30.8 pg (27.0-33.0); Mean Corpuscular Volume 93.6 fL (80-98); Mean Platelet Volume 9.5 fL (9.4-12.3); Monocytes Absolute Auto 0.5 X10*3/uL (0.1-1.2); Monocytes Percent Auto 5.5 % (2-11); Neutrophils Absolute Auto 3.8 X10*3/uL (2.0-8.3); Neutrophils Percent Auto 43.3 % (45-73); Platelet Count 309 X10*3/uL (160-400); Red Blood Count 3.89 X10*6/uL (4.20-5.50); Red Cell Distribution Width 13.5 % (11.0-16.0); White Blood Count 8.8 X10*3/uL (4.8-10.8)
[2020-07-13 08:07] LABS: Anion Gap 12 (12-20); Blood Urea Nitrogen 15 mg/dL (9-16); Carbon Dioxide 20 mmol/L (22-29); Chloride 112 mmol/L (96-108); Creatinine Clr Calc Pharmacy 113.7; Estimated Glomerular Filt Rate > 60; Glucose Random 73 mg/dL (60-115); Potassium 3.8 mmol/L (3.3-5.1); Sodium 140 mmol/L (135-145)
[2020-07-13 08:34] LABS: Calcium 8.2 mg/dL (8.4-10.2)
--- NOTE | 2020-07-13 08:58 | MHC.CM.PN ---
pt lives alone in her apt. she is independent in caring for herself. pt does have a s.o. that lives in the area and can help her c any needs she may have. this will include a ride home at dc. dc plan is home no svcs. cm to cont. to follow.
--- NOTE | 2020-07-13 09:33 | HO.PM.IMPN ---
Subjective Subjective Date of Service: 07/13/20 <Aubrie Yost NP - Last Filed: 07/13/20 14:44> 07/13/20 <Duy Smith MD - Last Filed: 07/13/20 17:12> Interval History: Follow up weakness, slurred speech Still with facial droop,weakness Crying, upset she cant figure out whats wrong with her <Aubrie Yost NP - Last Filed: 07/13/20 14:44> Physical Exam Vital Signs: Vital Signs: Last Vital Signs Temp 98.0 F 07/13/20 08:00 Pulse 82 07/13/20 08:00 Resp 20 07/13/20 08:00 BP 119/74 07/13/20 08:00 Pulse Ox 100 07/13/20 08:00 Body Mass Index 38.7 <Aubrie Yost NP - Last Filed: 07/13/20 14:44> Appearing in no acute distress head is normocephalic atraumatic eyes pupils are PERRLA sclera is anicteric mouth throat mucous membranes are intact and moist neck is supple no lymphadenopathy, no JVD noted lung sounds are clear to auscultation heart regular rate rhythm, clear S1, S2 positive bowel sounds, abdomen is soft, nontender neuro left arm and leg weakness, some tone but falls to the bed after dropped Left mouth facial droop, slow speech <Aubrie Yost NP - Last Filed: 07/13/20 14:44> Objective Data Current Medications Generic Name Dose Route Start Last Admin Trade Name Freq PRN Reason Stop Dose Admin Acetaminophen 650 mg 07/12/20 23:25 Acetaminophen 325 Mg Tablet PO Q6H PRN Pain, Mild (Pain Scale 1-3) Acetaminophen 650 mg 07/12/20 23:55 07/13/20 00:04 Acetaminophen Supp 650 Mg Supp.Rect IN 650 mg Q6H PRN Administration Pain, Mild (Pain Scale 1-3) Acetaminophen/Butalbital/Caffeine 1 tab 07/12/20 23:51 Butalb/Acetamin/Caff 50/325/40 Tablet PO Q4H PRN headache Clonidine HCl 0.1 mg 07/13/20 09:00 07/13/20 08:13 Clonidine Hcl 0.1 Mg Tablet PO Not Given TID MITCH Protocol Cyclobenzaprine HCl 10 mg 07/12/20 23:25 Cyclobenzaprine Hcl 10 Mg Tablet PO TID PRN muscle spasm Dicyclomine HCl 20 mg 07/12/20 23:51 Dicyclomine Hcl 10 Mg Capsule PO TID PRN abdominal discomfort Docusate Sodium 100 mg 07/12/20 23:25 Docusate Sodium 100 Mg Capsule PO DAILY PRN Constipation Heparin Sodium (Porcine) 5,000 unit 07/13/20 00:00 07/13/20 00:04 Heparin Sodium,Porcine 5,000 Unit/Ml Vial SUBCUT 5,000 unit Q12H [facility]CH Administration Methylprednisolone Sodium 66 mls @ 66 mls/hr 07/13/20 08:53 Succinate 1,000 mg/ Sodium IV 07/13/20 09:52 Chloride ONCE ONE Lamotrigine 25 mg 07/13/20 09:00 07/13/20 08:13 Lamotrigine 25 Mg Tablet PO Not Given DAILY MITCH Ondansetron HCl 4 mg 07/12/20 23:25 Ondansetron Hcl 4 Mg/2 Ml Vial IVPUSH Q8H PRN Nausea and Vomiting Sodium Chloride 3 ml 07/13/20 00:00 07/13/20 08:08 0.9 % Sodium Chloride Flush 3 Ml Syringe IVFLUSH 3 ml QSHIFT MITCH Administration <Aubrie Yost NP - Last Filed: 07/13/20 14:44> Labs CBC & Chem 7: : 07/13/20 06:03 07/13/20 06:03 <Aubrie Yost NP - Last Filed: 07/13/20 14:44> Assessment and Plan (1) Focal neurological deficit: Status: Acute <Aubrie Yost NP - Last Filed: 07/13/20 14:44> Assessment and Plan: This is a 39-year-old female with past medical history of possible pseudotumor cerebri, optic neuritis and apparently she had been told she had conversion disorder, who presents to the hospital with complaints of slurred speech, facial droopiness, and left-sided weakness Focal neurological deficits. Recent workup for MS. left upper and lower extremity weakness on the with slow speech and left facial droop -MRI w/wo negative for stroke or lesions however showing very small vessels -Vasculitis work-up -Cspine MRI to r/o anatomical cause -1gm solumedrol x3 days -Neurology following -neuro checks -If all diagnostic workup negative, consider psych consult for workup for conversion disorder Pseudotumor cerebri?. Patient reports had this in the past and currently not suffering from it Severe headache today Recent LP on 07/09 with normal pressures. -Morphine for 11/21 headache -added fioricet -Tylenol p.r.n. rectally if difficulty swallowing Bipolar disorder Not on home medication DVT prophylaxis with heparin Full code Attending: Dr. Smith <Aubrie Yost NP - Last Filed: 07/13/20 14:44> I have seen and evaluated this patient. I have discussed the case and its management with the NEUROLOGY EPILEPSY PHYSICIAN and I agree with the findings and plan as documented in the NEUROLOGY EPILEPSY PHYSICIAN?s note. Not clear what's going on with her MRI reviewed and unremkable, await Jeannine patel, hold fiorocet <Duy Smith MD - Last Filed: 07/13/20 17:12>
[2020-07-13] MEDS: Morphine Sulfate 2 MG/ML CARTRIDGE IVPUSH (09:39)
[2020-07-13] MEDS: methylPREDNISolone Sod Succ 1,000 MG in 0.9 % Sodium Chloride 50 ML 66 MG IV (09:39)
[2020-07-13 13:08] LABS: Lactic Acid 1.4 mmol/L (0.5-2.0)
[2020-07-13] MEDS: cloNIDine HCL 0.1 MG TABLET PO ×2 (14:22→19:28)
[2020-07-13] MEDS: Butalb/Acetamin/Caff 50/325/40 TABLET 1 TAB PO (14:22)
--- NOTE | 2020-07-13 17:23 | PM.NEUROCN ---
History of Present Illness Data of Consult Service Date: 07/13/20 Primary Care Provider: Unknown Physician HPI Reason for consult: Severe headache following lumbar puncture. Multiple complaints of weakness This is a 39-year-old woman with a 20 year history of for a complicated to medical issues primarily neurological, who has been followed by [facility] with no conclusive diagnosis. She does have a history of optic neuritis and has been worked up for multiple sclerosis on multiple occasions with negative workup including this admission where she's had a normal MRI of the brain and normal spinal fluid so far. She also carries a diagnosis of pseudotumor cerebri in the past however opening pressure on this admission was 14 cm. Her following lumbar puncture she kept complaining of severe headaches was brought in with the headaches that were inconsistent with a lumbar headache. She then complained of facial weakness on one side and numbness on the other side and was therefore admitted and given a gram of for Solu-Medrol IV. She is also getting workup for vasculitis and the an MRI of her her cervical and thoracic spine. Review of Systems Eyes: Eyes: Reports no additional eye complaints ENT: Reports system reviewed and no additional complaints, except as documented and Reports Normal hearing present Cardiovascular: Cardiovascular: Reports no additional cardiovascular complaints Respiratory: Respiratory: Reports no additional respiratory complaints Gastrointestinal: Gastrointestinal: Reports no additional gastrointestinal complaints Musculoskeletal: Musculoskeletal: Reports no additional musculoskeletal complaints Integumentary/Breasts: Skin/Breast: Reports system reviewed and no additional complaints, except as docu Neurologic: Reports as per HPI and Reports Normal hearing present Psychiatric: Psychiatric: Reports as per HPI Endocrine: Endocrine: Reports no additional endocrine complaints Hematologic/Lymphatic: Hematologic/Lymphatic: Reports no additional hematologic/lymphatic complaints Allergic/Immunologic: Allergic/Immunologic: Reports no additional allergic/immunologic complaints [facility] Past Medical History Medical History (Updated 07/13/20 @ 17:26 by Nasra Peng MD) Bipolar 1 disorder Chronic back pain Chronic headaches Ectopic , tubal HTN (hypertension) Obesity Optic neuritis Surgical History Surgical History Bariatric surgery status H/O abdominoplasty Social History Social History Household Members: Children Housing: Apartment Do you presently have visiting nurse or other home services: No Alcohol intake: never Patient Tobacco Use Status: Former Tobacco user Smoked in Last 30 Days: No Patient Interested in Nicotine Replacement: No Patient Given Instructions on How to Stop Smoking: No Second Hand Smoke Exposure: No Use of substances other than those prescribed or required for medical reasons: No Currently Displaying Signs/Symptoms of Drug Intoxication Withdrawal: No Any prior treatment program specific to substance use: No Have you been hit, kicked, punched, or otherwise hurt by someone within the past year? If so, by whom?: No Do you feel safe in your current relationship?: Yes Is there a partner from a previous relationship who is making you feel unsafe now?: No Are you made to feel afraid or neglected: No Advance Directives: No Advance Directives Information Provided: No Do you have thoughts of harming others: None Do you have a plan to hurt others: No Plan Recently lost weight without trying: No Nutrition Risks: No Nutritional Risk Patient : No : No Poor oral hygiene: No service: No Current occupational status: unemployed Meds Allergies Allergy/AdvReac Type Severity Reaction Status Date / Time Sulfa (Sulfonamide AdvReac Diarrhea Verified 07/12/20 21:45 Antibiotics) Active Medications: Current Medications Generic Name Dose Route Start Last Admin Trade Name Freq PRN Reason Stop Dose Admin Acetaminophen 650 mg 07/12/20 23:25 Acetaminophen 325 Mg Tablet PO Q6H PRN Pain, Mild (Pain Scale 1-3) Acetaminophen 650 mg 07/12/20 23:55 07/13/20 00:04 Acetaminophen Supp 650 Mg Supp.Rect DC 650 mg Q6H PRN Administration Pain, Mild (Pain Scale 1-3) Acetaminophen/Butalbital/Caffeine 1 tab 07/12/20 23:51 07/13/20 14:22 Butalb/Acetamin/Caff 50/325/40 Tablet PO 1 tab Q4H PRN Administration headache Acetaminophen/Butalbital/Caffeine 1 tab 07/13/20 14:12 Butalb/Acetamin/Caff 50/325/40 Tablet PO Q4H PRN headache Clonidine HCl 0.1 mg 07/13/20 09:00 07/13/20 14:22 Clonidine Hcl 0.1 Mg Tablet PO 0.1 mg TID MITCH Administration Protocol Cyclobenzaprine HCl 10 mg 07/12/20 23:25 Cyclobenzaprine Hcl 10 Mg Tablet PO TID PRN muscle spasm Dicyclomine HCl 20 mg 07/12/20 23:51 Dicyclomine Hcl 10 Mg Capsule PO TID PRN abdominal discomfort Docusate Sodium 100 mg 07/12/20 23:25 Docusate Sodium 100 Mg Capsule PO DAILY PRN Constipation Heparin Sodium (Porcine) 5,000 unit 07/13/20 00:00 07/13/20 12:07 Heparin Sodium,Porcine 5,000 Unit/Ml Vial SUBCUT 5,000 unit Q12H [facility] Administration Methylprednisolone Sodium 66 mls @ 66 mls/hr 07/14/20 09:00 Succinate 1,000 mg/ Sodium IV 07/15/20 09:59 Chloride DAILY [facility] Lamotrigine 25 mg 07/13/20 09:00 07/13/20 08:13 Lamotrigine 25 Mg Tablet PO Not Given DAILY [facility] Ondansetron HCl 4 mg 07/12/20 23:25 Ondansetron Hcl 4 Mg/2 Ml Vial IVPUSH Q8H PRN Nausea and Vomiting Sodium Chloride 3 ml 07/13/20 00:00 07/13/20 14:22 0.9 % Sodium Chloride Flush 3 Ml Syringe IVFLUSH 3 ml QSHIFT [facility] Administration Home Medications Medication Instructions Recorded Confirmed Last Taken Type albuterol sulfate [ProAir HFA] 90 mcg INHALATION NEEDED PRN 07/12/20 07/13/20 Unknown History clonidine HCl 1 tab PO TID 07/12/20 07/13/20 07/12/20 History gabapentin [Neurontin] 600 mg PO QID 07/12/20 07/13/20 07/12/20 History lamotrigine 25 mg PO DAILY 07/12/20 07/13/20 07/12/20 History topiramate 50 mg PO BID 07/12/20 07/13/20 07/12/20 History trazodone 50 mg PO BEDTIME 07/12/20 07/13/20 07/12/20 History PNV cmb#95-ferrous fumarate-FA 1 tab PO DAILY 07/13/20 07/13/20 07/12/20 History [] acetaminophen [Tylenol Extra 1,000 mg PO DAILY 07/13/20 07/13/20 07/12/20 History Strength] cholecalciferol (vitamin D3) 50 mcg PO DAILY 07/13/20 07/13/20 07/12/20 History ferrous sulfate 325 mg PO DAILY 07/13/20 07/13/20 07/12/20 History ibuprofen 800 mg PO DAILY 07/13/20 07/13/20 07/12/20 History Physical Exam Vital Signs: Vital Signs: Last Vital Signs Temp 98.2 F 07/13/20 15:21 Pulse 90 07/13/20 15:21 Resp 14 07/13/20 15:21 BP 120/68 07/13/20 15:21 Pulse Ox 98 07/13/20 15:21 Body Mass Index 38.7 Const: General: cooperative, comfortable, no acute distress, well developed, alert and awake Nutritional Appearance: well nourished Orientation/consciousness: oriented to person, oriented to place and oriented to time Limitations: no limitations HENMT: Head: Yes normal to inspection, Yes normocephalic and Yes atraumatic Ears: hearing grossly normal bilaterally General nose exam: Normal external nose present Face and sinus: Yes normal facial exam Mouth: Normal oral and palatal mucosa present Eyes: General: appearance normal, both eyes and all related structures Visual Harris: normal visual harris by confrontation Alignment and Position: alignment normal Periorbital: periorbital findings normal Eyelids: Yes eyelids normal Conjunctivae: conjunctivae normal Sclerae: sclerae normal Corneas: corneas normal Pupils: Equal, round and reactive pupils present and Pupil accommodation reflex normal EOM: EOMs intact bilaterally Direct Ophthalmoscopy: normal light reflex Neck: Neck: Yes normal visual inspection, Yes full ROM and Yes no meningeal signs Thyroid: Thyroid normal Carotids: normal carotid upstroke and bounding pulses Chest: Chest palpation & inspection: normal inspection of the chest Resp: Effort & Inspection: normal respiratory effort Auscultation: clear to auscultation bilaterally Cardio: Rate: regular rate Rhythm: regular rhythm Heart sounds: S1 normal heart sound present and S2 normal heart sound present Peripheral pulses: Peripheral pulses 2+ throughout GI: Inspection: Yes normal to inspection Percussion: Yes normal to percussion Auscultation: normal bowel sounds Rectal Exam - Female: deferred Back/Spine/Pelvis: Cervical Spine: normal cervical lordosis and cervical ROM normal Thoracic/Lumbar Spine: thoracic and lumbar spine normal to inspection Skin: General skin exam: no rashes or lesions noted Neuro: General: oriented to person, oriented to place, oriented to time, gait normal, tone normal, moves all extremities, Normal light touch and pain sensation, no meningeal signs, no focal motor deficits, CN's II-XI intact bilaterally, normal sensation to monofilament and deep tendon reflexes 2+ bilaterally Cranial nerves: Yes CN's II-XII intact bilaterally, Yes Equal, round and reactive pupils present, Yes Bilaterally intact EOM present, Yes Nystagmus not present, Yes Normal facial strength present, Yes Midline tongue present, Yes Normal gag reflex present, Yes Symmetric palate elevation present, Yes Normal hearing present and Yes Ability to bilaterally rotate head present Cognition (Neuro): normal cognition Speech: Other speech findings present (Neuro) Gait exam (Neuro): Normal gait present Motor exam (neuro): 5/5 motor strength present throughout, Pronator motor function not present, no tremor noted, no asterixis, Motor fasciculations not present, Normal motor muscle tone present throughout and Motor abnormalities not present Sensory Exam: Bilaterally intact graphesthesia Deep tendon reflexes (DTR's): Right triceps reflex intensity grade: 2+, Left triceps reflex intensity grade: 2+, Rt Biceps (C5, C6): 2+, Left biceps reflex intensity grade: 2+, Right brachioradialis reflex intensity grade: 2+, Left brachioradialis reflex intensity grade: 2+, Right patellar reflex intensity grade: 2+, Left patellar reflex intensity grade: 2+, Right ankle reflex intensity grade: 2+ and Left ankle reflex intensity grade: 2+ Plantar Reflex Responses: downgoing: right, left and bilateral Coordination: [id number] test normal, gutk-na-eyha test normal, tandem gait normal and Romberg test negative Pupils: Normal pupillary reactivity/response: bilateral Extrem: General: Yes normal to inspection, Yes normal exam except as noted and Yes no pedal edema Psych: Appearance: grossly normal Mental Status: mental status grossly normal Speech and movement: Normal speech and movement present and Clear speech present Affect: normal affect Attitude: cooperative Thought process: Normal thought process present Results Labs CBC & Chem 7: 07/13/20 06:03 07/13/20 06:03 Labs: Short CBC 07/12/20 07/13/20 Range/Units 20:37 06:03 WBC 11.3 H 8.8 (4.8-10.8) X10*3/uL Hgb 12.5 12.0 (12.0-16.0) g/dl Hct 38.3 36.4 L (37-47) % Plt Count 327 309 (160-400) X10*3/uL BMP 07/12/20 07/13/20 20:50 06:03 Sodium 143 140 Potassium 3.6 3.8 Chloride 114 H 112 H Carbon Dioxide 20 L 20 L BUN 13 15 Creatinine 0.77 0.71 Calcium 8.7 8.2 L Liver Function 07/12/20 Range/Units 20:55 Total Bilirubin 0.2 (0.0-1.0) mg/dL Direct Bilirubin < 0.2 (0.0-0.5) mg/dL AST 13 (5-31) U/L ALT 19 (0-31) U/L Alkaline Phosphatase 71 (39-117) U/L Albumin 4.1 (3.5-5.0) g/dL Urine 07/12/20 Range/Units 20:49 Urine Color YELLOW Urine Appearance CLEAR Urine pH 5.5 (5.0-8.0) Ur Specific [place] 1.010 (1.005-1.025) Urine Protein NEG (NEG-TRACE) MG/DL Urine Glucose (UA) NEG (NEG) MG/DL Assessment and Plan (1) Acute focal neurological deficit, onset within 3 hours: Status: Acute Way trying to rule out multiple sclerosis. Her findings are somewhat inconsistent and do fluctuate. This has been the record and previous admissions also. There is a question whether these are conversion reactions. She does have a psychiatric history. She does have some evidence of previous optic neuritis. MRI of her spine are pending. I would give her 3 days of IV Solu-Medrol 1 g a day with a presumptive diagnosis of demyelinating disease although it has not been documented. He for entire workup is negative including that for vasculitis then I would also suggest a psychiatric evaluation. Procedures Date of Service Date of Service: 07/13/20
--- NOTE | 2020-07-13 19:24 | PC.NURSE ---
Patient very tearful today due to not knowing what is explaining her symptoms; brain and lumbar spine MRI's completed. Patient given PRN fioricet and was no longer oriented, stating that she is at a hotel and that the year is 2018. Hospitalist notified, instructed to hold this med. Patient continues to have L sided weakness, L sided facial droop, R eye blurry/spotty vision. No further issues.
[2020-07-13] MEDS: ondansetron HCL 4 MG/2 ML VIAL IVPUSH (19:28)
[2020-07-13] MEDS: Cyclobenzaprine HCl 10 MG TABLET PO (19:29)
[2020-07-13] MEDS: Acetaminophen 325 MG TABLET 650 MG PO (23:43)
[2020-07-14] MEDS: Gabapentin 600 MG TABLET PO ×3 (00:21→12:40)
[2020-07-14] MEDS: traZODone HCL 50 MG TABLET PO (00:21)
[2020-07-14 04:00] VITALS: BP 117/61; PULSE 81; RESP 18; TEMP 36.7; O2SAT 96
[2020-07-14] MEDS: oxyCODONE HCl Immed Release 5 MG TABLET PO (04:16)
[2020-07-14 05:55] LABS: Hematocrit 39.1 % (37-47); Hemoglobin 13.2 g/dl (12.0-16.0); Mean Corpuscular HGB Conc 33.8 g/dl (31.0-35.0); Mean Corpuscular Volume 91.8 fL (80-98); Mean Platelet Volume 9.4 fL (9.4-12.3); Platelet Count 345 X10*3/uL (160-400); Red Blood Count 4.26 X10*6/uL (4.20-5.50); Red Cell Distribution Width 13.2 % (11.0-16.0); White Blood Count 14.6 X10*3/uL (4.8-10.8)
[2020-07-14 06:23] LABS: Anion Gap 15 (12-20); Blood Urea Nitrogen 11 mg/dL (9-16); Carbon Dioxide 21 mmol/L (22-29); Chloride 109 mmol/L (96-108); Creatinine Clr Calc Pharmacy 115.3; Estimated Glomerular Filt Rate > 60; Glucose Random 95 mg/dL (60-115); Potassium 4.2 mmol/L (3.3-5.1); Sodium 141 mmol/L (135-145)
[2020-07-14 07:45] VITALS: BP 137/84; PULSE 85; RESP 20; TEMP 36.8; O2SAT 100
[2020-07-14 08:49] VITALS: BP 137/84; PULSE 85
[2020-07-14] MEDS: Topiramate 25 MG TABLET 50 MG PO (08:49)
[2020-07-14] MEDS: cloNIDine HCL 0.1 MG TABLET PO (08:49)
[2020-07-14] MEDS: methylPREDNISolone Sod Succ 1,000 MG in 0.9 % Sodium Chloride 50 ML 66 MG IV (08:49)
[2020-07-14] MEDS: 0.9 % Sodium Chloride Flush 3 ML SYRINGE IVFLUSH (08:49)
[2020-07-14] MEDS: lamoTRIgine 25 MG TABLET PO (08:49)
[2020-07-14] MEDS: Cyclobenzaprine HCl 10 MG TABLET PO (09:11)
--- NOTE | 2020-07-14 09:59 | MHC.SL.DTX ---
Pre-Treatment Diet: PUREED SOLIDS (NDD1) THIN LIQUIDS via tsp or controlled straw sip PILLS CRUSHED Subjective: Changes made to current diet?: Yes Dysphasia Diet Status: Upgrade Liquid Consistency and Strategies: Liquid Intake Recommendation: Thin Compensatory Strategies for Safe Swallow: Unrestricted Compensatory Strategies for Safe Swallow(b): Sitting Upright (90 deg) Liquids from Cup Liquids from Straw Alternate Liquids/Solids Solid Food Consistency: Dietary Recommendations: Regular Additional Modifications to Solids: Oral Medication Intake: Whole with Liquid Strategies and Precautions to be Taken for Safe Swallow: Compensatory Swallowing Status: Sitting Upright (90 deg) Liquids from Cup Liquids from Straw Alternate Liquids/Solids Supervision While Eating and/Drinking: Intermittent Supervision Foods to Avoid: Swallowing Recommended Treatments: Compens. Strategy Educat. Level of Impact on: Daily activities: Mild Interpersonal interactions: Mild Education: None Employment: None Community: Mild Prognosis for Improvement: Good Recommendation for Speech: Inpatient Speech Therapy Comment: Frequency/Duration: Date Range for Service Req: Timeline to reassess: Additional Comments: Treatment: AUTOMATIC WHEEL LINE OPERATOR received [place] message from RN this morning regarding pt's diet. Per RN, pt is unhappy with pureed solids. Pt reportedly feeling much better this morning. Facial droop and numbness resolved overnight. Pt was upright in bed upon AUTOMATIC WHEEL LINE OPERATOR's arrival. She stated that she was hungry and did not like the pureed breakfast. She also stated that her dinner was not modified and she had slight difficulty chewing the chicken pot pie she received. This morning she reported no difficulty swallowing. Pt had coffee at bedside. She tolerated thin liquid via cup sip with no overt s/s aspiration and timely swallow. Pt able to masticate hard solid without difficulty. Minimal oral residue which cleared with liquid wash. Assessment: Hat Finisher Clinican/Clinical Fellow: Yes: Michelle Sparrow M.A., CF-AUTOMATIC WHEEL LINE OPERATOR Supervisory Statement: I have reviewed and agree with the student/clinical fellow's documentation: Yes Speech Language Pathologist: Sheron Guadalupe M.A., CCC-AUTOMATIC WHEEL LINE OPERATOR
[2020-07-14 11:14] VITALS: BP 123/90; PULSE 84; RESP 18; TEMP 36.6; O2SAT 99
[2020-07-14 11:37] LABS: Myeloperoxidase Antibody <1.0 AI; Proteinase 3 PR3 Antibodies <1.0 AI
[2020-07-14] MEDS: Heparin Sodium,Porcine 5,000 UNIT/ML VIAL 5000 UNIT SUBCUT (12:40)
--- NOTE | 2020-07-14 13:38 | MHC.CM.PN ---
DP Female DX ss CVA Neuro spoke w Pt re Conversion disorder. Her S/S began to improve throughout the morning. She was seen by PT. Eval indicated home no services. Out patient PT is dispo. Notified MD Pts spouse is providing transportation home.
[2020-07-14 14:52] LABS: Complement C3 84 mg/dL (83-193)
--- NOTE | 2020-07-14 14:59 | PM.DS ---
DS: Providers Provider Date of Service: 07/14/20 <TIM Cullen - Last Filed: 07/14/20 15:28> Date of admission: 07/12/20 22:40 <TIM Cullen - Last Filed: 07/14/20 15:28> Primary care physician: Unknown Physician <TIM Cullen - Last Filed: 07/14/20 15:28> Consults: 07/12/20 23:25 Consult to Neurology Routine Consulting Provider: [facility] Reason for consultation: CVA r/o Has provider been notified: Yes <TIM Cullen - Last Filed: 07/14/20 15:28> DS: Diagnosis Discharge Diagnosis (1) Acute focal neurological deficit, onset within 3 hours: Status: Acute <TIM Cullen - Last Filed: 07/14/20 15:28> (2) Conversion disorder: Status: Acute <TIM Cullen - Last Filed: 07/14/20 15:28> DS: Medications Discharge Medications Home Medications: Home Medications Medication Instructions Recorded Confirmed albuterol sulfate [ProAir HFA] 90 mcg INHALATION NEEDED PRN 07/12/20 07/13/20 clonidine HCl 1 tab PO TID 07/12/20 07/13/20 gabapentin [Neurontin] 600 mg PO QID 07/12/20 07/13/20 lamotrigine 25 mg PO DAILY 07/12/20 07/13/20 topiramate 50 mg PO BID 07/12/20 07/13/20 trazodone 50 mg PO BEDTIME 07/12/20 07/13/20 PNV cmb#95-ferrous fumarate-FA 1 tab PO DAILY 07/13/20 07/13/20 [] cholecalciferol (vitamin D3) 50 mcg PO DAILY 07/13/20 07/13/20 ferrous sulfate 325 mg PO DAILY 07/13/20 07/13/20 Previous Rx's Medication Instructions Recorded cyclobenzaprine 10 mg PO TID PRN #14 tab 03/12/20 dicyclomine 20 mg PO TID PRN #30 tab 03/12/20 ondansetron 4 mg PO Q8H PRN #20 tab 01/29/21 uhltaizugl-bmzuqbfomdvox-ntqv 1 cap PO Q4-6H PRN #14 cap 07/11/20 [Fioricet] lorazepam [Ativan] 0.5 mg PO DAILY PRN #7 tab 07/14/20 <TIM Cullen - Last Filed: 07/14/20 15:28> DS: Summary Hospital Course Hospital Course: From H&P on day of admission 35-year-old female with past medical history of bipolar disorder, hypertension, of took neuritis, pseudotumor cerebri which she reports is in the past and is no longer active, currently being worked up for MS who presents hospital, with multiple complaints that initially started with right eye blindness, progressed to slurring of her speech, left-sided weakness (initially on arrival to the ED she reported right facial droopiness and weakness but when I saw her she was telling me is on left side), as well as numbness on the left side upper and lower extremity. It appears the throughout her ED stay patient's story changed as well as her symptoms of weakness and facial droop. Patient reported to me that she has numbness only of her left arm and leg but when I asked her if she has weakness then she said yes. Well getting the CT scan as ordered by the neurologist for stroke protocol patient changed this low redness of her face from right to left and therefore the symptoms are quite unclear and suspicious. Patient reports that her symptoms started about 4-5 hours prior to presentation. Of note she was seen in the ED the day prior for headache, Neurology was consulted, patient was given supportive measures and sent home. She currently reports no headache, but feels extremely tired, no nausea or vomiting, feels constipated, she is scheduled for an LP on Sunday by the neurologist for the workup of MS, she denies any abdominal pain, no urinary symptoms, although reports loss of bladder control over the past few weeks, no lower extremity edema. On arrival to the ED patient's vital significant for temp of 97.9?, heart rate of 88, respiratory rate of 14, blood pressure 155/91, satting 100% on room air Labs are significant for WBC count of 11.3 (8 the day prior, hemoglobin of 12.5, PT of 10.5, INR of 0.9, pH of 7.32, with no other abnormalities in the VBG, sodium of 143, potassium 3.6, with no other abnormalities. UA negative, UDS positive for barbiturates as well as benzodiazepine, Head and neck CT angiogram shows diminutive wispy enhancement of superior division of the left M2 to lesser extent the inferior division of the left M2 with relative oligemia to the left frontal operculum. Similar though less pronounced findings are present involving the right M3 branches. This may be artifactual and related to poor bolus technique, vasculitis could also have this appearance. No large vessel occlusion within the intracranial or extracranial arterial vasculature. No territory infarct Due to above findings patient was admitted to the telemetry floor. She has a history of pseudotumor cerebri however LP on day of admission showed an opening pressure of 14 cm water. Brain MRI showed no evidence of stroke, hemorrhage, intracranial mass or enhancement. Head And neck CTA initially reported wispy enhancement of the M2, this was later addended and likely to be artifact related but a vasculitis workup was initiated and labs are pending at the time of discharge vessel occlusion within the intracranial or extracranial arterial vasculature. MRI of the cervical spine showed multilevel degenerative this spondyloarthropathy but no spinal canal stenosis or nerve root compression. Given patient's initial symptoms she was started on high dose steroids for possible demyelinating disorder. She was seen in evaluation by Neurology who felt her symptoms were secondary to conversion disorder. They recommended to discontinue steroids and to discharge with small dose of benzos and to follow up with outpatient psychiatrist. Her left-sided weakness improved significantly throughout the course of the day today under slurred speech has resolved. She was evaluated by Physical therapy who recommends home with no services. PCP can consider outpatient physical therapy as indicated. Patient is relieved that imaging is negative and she is eager to return home today. <TIM Cullen - Last Filed: 07/14/20 15:28> Time Spent with Patient Time attestation: Total time spent providing and/or coordinating discharge services: <TIM Cullen - Last Filed: 07/14/20 15:28> Discharge coordination time: Greater than 30 minutes <TIM Cullen - Last Filed: 07/14/20 15:28> Quality: Stroke Does the patient have a stroke diagnosis?: No <TMI Cullen - Last Filed: 07/14/20 15:28> Physical Exam Vital Signs: Vital Signs: Last Vital Signs Temp 97.8 F 07/14/20 11:14 Pulse 84 07/14/20 11:14 Resp 18 07/14/20 11:14 BP 123/90 H 07/14/20 11:14 Pulse Ox 99 07/14/20 11:14 Body Mass Index 38.7 <TIM Cullen - Last Filed: 07/14/20 15:28> Const: Nutritional Appearance: well nourished <TIM Cullen - Last Filed: 07/14/20 15:28> Orientation/consciousness: patient oriented x3 <TIM Cullen - Last Filed: 07/14/20 15:28> HENMT: Head: Yes normocephalic and Yes atraumatic <TIM Cullen - Last Filed: 07/14/20 15:28> Eyes: Sclerae: sclerae normal <TIM Cullen - Last Filed: 07/14/20 15:28> Chest: Chest palpation & inspection: normal inspection of the chest <TIM Cullen - Last Filed: 07/14/20 15:28> Resp: Effort & Inspection: normal respiratory effort and no respiratory distress <TIM Cullen - Last Filed: 07/14/20 15:28> Cardio: Rate: regular rate <TIM Cullen - Last Filed: 07/14/20 15:28> Rhythm: regular rhythm <TIM Cullen - Last Filed: 07/14/20 15:28> GI: Palpation (GI): Soft to palpation and nontender <TIM Cullen - Last Filed: 07/14/20 15:28> Neuro: General: patient oriented x3 <TIM Cullen - Last Filed: 07/14/20 15:28> Cranial nerves: Yes CN's II-XII intact bilaterally and Yes Bilaterally intact EOM present <TIM Cullen - Last Filed: 07/14/20 15:28> DS: Data Data Completed and Pending Labs on day of discharge: Laboratory Results - last 24 hr 07/13/20 07/14/20 07/14/20 15:19 05:18 05:18 WBC 14.6 H RBC 4.26 Hgb 13.2 Hct 39.1 MCV 91.8 MCH 31.0 MCHC 33.8 RDW 13.2 Plt Count 345 MPV 9.4 Absolute Nucleated RBC 0.000 Nucleated RBC % (auto) 0.0 Sodium 141 Potassium 4.2 Chloride 109 H Carbon Dioxide 21 L Anion Gap 15 BUN 11 Creatinine 0.70 Estim Creat Clear Calc 115.3 Estimated GFR > 60 Random Glucose 95 Calcium 9.0 D Proteinase 3 (PR3) Ab <1.0 Myeloperoxidase Ab <1.0 Complement C3 84 Complement C4 17 <TIM Cullen - Last Filed: 07/14/20 15:28> Discharge Plan Discharge Patient Disposition: Home, Self-Care <TIM Cullen - Last Filed: 07/14/20 15:28> Discharge Diagnosis: Left side weakness <TIM Cullen - Last Filed: 07/14/20 15:28> Left side weakness <Duy Smith MD - Last Filed: 07/14/20 17:50> Referrals: Physician,Unknown [Primary Care Provider] - 1 Week <TIM Cullen - Last Filed: 07/14/20 15:28> Discharge Medications: New lorazepam [Ativan] 0.5 mg tablet 0.5 mg PO DAILY PRN (Reason: anxiety) Qty: 7 RF: 0 Continued oenkmynjam-wtwhbkujwnjvk-hemw [Fioricet] 50-300-40 mg capsule 1 cap PO Q4-6H PRN (Reason: headache) Qty: 14 RF: 0 clonidine HCl 0.1 mg tablet 1 tab PO TID RF: 0 gabapentin [Neurontin] 600 mg tablet 600 mg PO QID RF: 0 trazodone 50 mg tablet 50 mg PO BEDTIME RF: 0 lamotrigine 25 mg tablet 25 mg PO DAILY RF: 0 albuterol sulfate [ProAir HFA] 90 mcg/actuation HFA aerosol inhaler 90 mcg inhalation NEEDED PRN (Reason: Allergic Reaction) RF: 0 topiramate 50 mg tablet 50 mg PO BID RF: 0 ferrous sulfate 325 mg (65 mg iron) Tablet 325 mg PO DAILY RF: 0 cholecalciferol (vitamin D3) 50 mcg (2,000 unit) Tablet 50 mcg PO DAILY RF: 0 PNV cmb#95-ferrous fumarate-FA [] 28 mg iron- 800 mcg Tablet 1 tab PO DAILY RF: 0 cyclobenzaprine 10 mg tablet 10 mg PO TID PRN (Reason: muscle spasm) Qty: 14 RF: 0 ondansetron 4 mg tablet,disintegrating 4 mg PO Q8H PRN (Reason: nausea and vomiting) Qty: 20 RF: 0 dicyclomine 20 mg tablet 20 mg PO TID PRN (Reason: abdominal discomfort) Qty: 30 RF: 0 Discontinued ibuprofen 800 mg Tablet 800 mg PO DAILY RF: 0 acetaminophen [Tylenol Extra Strength] 500 mg Tablet 1,000 mg PO DAILY RF: 0 <TIM Cullen - Last Filed: 07/14/20 15:28> Discharge Orders: Discharge Order (Routine); Ordered 07/14/20 Ordered By: Amy Pablo <TIM Cullen - Last Filed: 07/14/20 15:28> Activity on Discharge: As tolerated <TIM Cullen - Last Filed: 07/14/20 15:28> As tolerated <Duy Smith MD - Last Filed: 07/14/20 17:50> Stand Alone Forms: Patient Portal Discharge page <TIM Cullen - Last Filed: 07/14/20 15:28> Care Plan Goals: See below <TIM Cullen - Last Filed: 07/14/20 15:28> Health Concerns: Left-sided weakness <TIM Cullen - Last Filed: 07/14/20 15:28> Plan of Treatment: Left-sided weakness. Please follow-up with PCP, psychiatrist. <TIM Cullen - Last Filed: 07/14/20 15:28> Assessment: See discharge summary I have seen and evaluated this patient. I have discussed the case and its management with the [employer] WORKER and I agree with the findings and plan as documented in the PA?s note. -Duy Smith MD <TIM Cullen - Last Filed: 07/14/20 15:28> Discharge Date/Time: 07/14/20 15:42 <TIM Cullen - Last Filed: 07/14/20 15:28>
[2020-07-14 23:41] LABS: Anti Nuclear Antibody Screen POSITIVE (NEGATIVE)
[2020-07-15 14:37] LABS: PTT (LAC) Screen 29 sec (< OR = 40)
== END 2020-07-14 15:42 | disposition home or self-care (01) ==
LOC: HO.ED 21:53 → HO.IMC 22:56
PROVIDERS: Emergency Medicine; Nurse Practitioner Acute Care; Psychiatry & Neurology Neurology; Admitting Provider Internal Medicine; Emergency Provider Emergency Medicine; Visit Provider Internal Medicine
DX: R29.818 Other symptoms and signs involving the nervous system (principal); G93.2 Benign intracranial hypertension; F44.4 Conversion disorder with motor symptom or deficit; F31.9 Bipolar disorder, unspecified; R29.810 Facial weakness; R47.81 Slurred speech; H54.61 Unqualified visual loss, right eye, normal vision left eye; R13.11 Dysphagia, oral phase; I10 Essential (primary) hypertension; G89.29 Other chronic pain; M54.9 Dorsalgia, unspecified; R51.9 Headache, unspecified; H46.9 Unspecified optic neuritis; M47.812 Spondylosis without myelopathy or radiculopathy, cervical region; E66.9 Obesity, unspecified; Z68.38 Body mass index [BMI] 38.0-38.9, adult; Z20.822 Contact with and (suspected) exposure to COVID-19; Z87.891 Personal history of nicotine dependence; Z98.84 Bariatric surgery status; Z88.2 Allergy status to sulfonamides; Z79.899 Other long term (current) drug therapy
CPT/HCPCS: 36415; 70496; 70498; 70553; 72141; 80048; 80076; 80143; 80307; 81003; 82077; 82140; 82947; 83605; 83690; 83735; 84443; 84484; 85025; 85027; 85597; 85610; 85613; 85730; 86021; 86038; 86039; 86160; 87635; 92610; 93005; 96365; 96374; 96375; 97162; 99219; 99285; A9585; C1758; J1885; J2270; J2405; J2930; Q9967

== ENCOUNTER 2021-08-15 18:39 | Emergency (ER) | payer OTHER, SELFPAY ==
--- NOTE | ~2021-08-15 | XR_ITS ---
EXAMINATION: XR ABDOMEN KUB CLINICAL INDICATION: Abdominal distention COMPARISON: CT abdomen pelvis 03/12/2020 TECHNIQUE: AP view of the abdomen. FINDINGS: The bowel gas pattern is normal with no evidence of ileus or obstruction. No unusual soft tissue calcifications are noted. Multiple surgical clips are present in the pelvis. An IUD is in place. There has been prior lumbar spine surgery with pedicular screws at C4-C5 with disc prosthesis present at this level as well. The bones are otherwise unremarkable. XR/XR KUB IMPRESSION: No evidence of bowel obstruction
--- NOTE | ~2021-08-15 | CT_ITS ---
EXAMINATION: CT ABDOMEN AND PELVIS WITHOUT CONTRAST CLINICAL INFORMATION: Abdominal distention with history of gastric bypass COMPARISON: CT abdomen pelvis 03/12/2020 TECHNIQUE: Multidetector volumetric imaging was performed from the superior aspect of the liver through the pubic symphysis. Sagittal and coronal reformatted images were obtained on the technologist's workstation. This CT examination was performed using dose optimization techniques as appropriate, variously including the following: *Automated exposure control *Adjustment of mA and/or kV according to patient size (this includes techniques or standardized protocols for targeted exams where dose is matched to indication/reason for exam; i.e. extremities or head) *Use of iterative reconstruction technique DLP: 923 mGy-cm FINDINGS: LUNG BASES: The visualized lung bases are unremarkable. LIVER, GALLBLADDER, AND BILIARY TREE: The liver is normal in size, shape, and attenuation. No focal hepatic lesion or biliary ductal dilatation is present. The gallbladder is unremarkable with no evidence of radiopaque gallstones, gallbladder wall thickening, or obvious pericholecystic inflammatory changes. PANCREAS: Unremarkable. SPLEEN: Unremarkable. ADRENAL GLANDS: Unremarkable. KIDNEYS AND URETERS: The kidneys are normal in size, shape, and attenuation. No hydronephrosis, hydroureter, or calculi seen. No perinephric stranding. BLADDER: Unremarkable. GASTROINTESTINAL TRACT: Prior gastric sleeve surgery. The small and large bowel are unremarkable. The appendix is unremarkable. ABDOMINAL WALL: No significant hernia is appreciated. Multiple surgical clips are noted in the abdominal wall. LYMPH NODES: No retroperitoneal lymphadenopathy. VASCULAR: Unremarkable. PELVIC VISCERA: An anteverted uterus is present with an IUD in good position. OSSEOUS STRUCTURES: Posterior pedicular screws are present at L4-L5 with interbody prosthesis is present. A small bone island is present in L2. CT/CT abdomen pelvis wo con IMPRESSION: There is no bowel obstruction or ascites and there does not appear to be abdominal distention. Incidental findings as above. Fleischner guidelines were followed.
[2021-08-15 18:51] VITALS: BP 151/99; PULSE 105; RESP 17; TEMP 36.8; O2SAT 98; BMI 37.3
[2021-08-15 19:09] LABS: MANUAL DIFF FLAG NO
[2021-08-15 19:15] LABS: Basophils Absolute Auto 0.1 X10*3/uL (0.0-0.2); Basophils Percent Auto 0.7 % (0-2); Eosinophils Absolute Auto 0.4 X10*3/uL (0.0-0.4); Eosinophils Percent Auto 3.8 % (0-4); Hematocrit 38.6 % (37.0-47.0); Hemoglobin 12.9 g/dl (12.0-16.0); Imm Gran Abs Auto 0.09 X10*3/uL (0.00-0.03); Lymphocytes Absolute Auto 3.4 X10*3/uL (1.2-4.9); Lymphocytes Percent Auto 37.3 % (20-40); Mean Corpuscular HGB Conc 33.4 g/dl (31.0-35.0); Mean Corpuscular Hemoglobin 31.5 pg (27.0-33.0); Mean Corpuscular Volume 94.4 fL (80.0-98.0); Mean Platelet Volume 9.4 fL (9.4-12.3); Monocytes Absolute Auto 0.6 X10*3/uL (0.1-1.2); Neutrophils Absolute Auto 4.6 x10*3/uL (2.0-8.3); Neutrophils Percent Auto 50.2 % (45-73); Platelet Count 324 X10*3/uL (160-400); Red Blood Count 4.09 X10*6/uL (4.20-5.50); Red Cell Distribution Width 13.6 % (11.0-16.0); White Blood Count 9.2 X10*3/uL (4.8-10.8)
[2021-08-15 19:27] LABS: Alanine Aminotransferase 17 U/L (0-31); Albumin Level 4.2 g/dL (3.5-5.0); Alkaline Phosphatase 76 U/L (39-117); Anion Gap 13 (12-20); Aspartate Amino Transferase 16 U/L (5-31); Bilirubin Total 0.2 mg/dL (0.0-1.0); Blood Urea Nitrogen 18 mg/dL (9-16); Calcium 8.7 mg/dL (8.4-10.2); Carbon Dioxide 24 mmol/L (22-29); Chloride 108 mmol/L (96-108); Creatinine Clr Calc Pharmacy 104.5; Estimated Glomerular Filt Rate > 60; Glucose Random 109 mg/dL (60-115); Potassium 4.1 mmol/L (3.3-5.1); Sodium 141 mmol/L (135-145); Total Protein 6.8 g/dL (6.5-8.0)
[2021-08-15 19:28] LABS: INTERNATIONAL NORM RATIO 0.8 (0.9-1.1); Prothrombin Time 9.4 SEC (10.0-13.1)
[2021-08-15 19:31] LABS: Partial Thromboplastin Time 32.3 SEC (24.1-38.0)
--- NOTE | 2021-08-15 19:50 | ED.GIBLEED ---
HPI - GI Bleed General Chief complaint: Abdominal Pain Stated complaint: abd pain/anal bleeding Time Seen by Provider: 08/15/21 19:49 Source: patient Mode of arrival: ambulatory Limitations: no limitations History of Present Illness HPI Narrative: Patient history of bipolar disorder, hypertension, pseudotumor cerebri, history of conversion disorder comes here for bright red rectal bleeding last 3 days states whenever she tried to move so he gets blood in the stool in the ED it was noticed bright red in color also patient complaining of abdominal distension but eating normally has nausea but no vomiting , no diarrhea states that she is moving her bowels every day Related Data Home Medications Medication Instructions Recorded Confirmed albuterol sulfate 90 mcg/actuation 90 mcg inhalation NEEDED PRN 07/12/20 07/13/20 aerosol inhaler (ProAir HFA) Allergic Reaction clonidine HCl 0.1 mg tablet 1 tab PO TID anxiety 07/12/20 07/13/20 gabapentin 600 mg tablet 600 mg PO QID 07/12/20 07/13/20 (Neurontin) lamotrigine 25 mg tablet 25 mg PO DAILY 07/12/20 07/13/20 topiramate 50 mg tablet 50 mg PO BID 07/12/20 07/13/20 trazodone 50 mg tablet 50 mg PO BEDTIME 07/12/20 07/13/20 cholecalciferol (vitamin D3) 50 50 mcg PO DAILY 07/13/20 07/13/20 mcg (2,000 unit) tablet ferrous sulfate 325 mg (65 mg 325 mg PO DAILY 07/13/20 07/13/20 iron) tablet vit no.95-ferrous 1 tab PO DAILY 07/13/20 07/13/20 fumarate 28 mg-folic acid 800 mcg tablet () Previous Rx's Medication Instructions Recorded cyclobenzaprine 10 mg tablet 10 mg PO TID PRN muscle spasm #14 03/12/20 tabs dicyclomine 20 mg tablet 20 mg PO TID PRN abdominal 03/12/20 discomfort #30 tabs ondansetron 4 mg disintegrating 4 mg PO Q8H PRN nausea and 03/12/20 tablet vomiting #20 tabs fkzoiykrzy-iedqzscttssvg-xstxtzzq 1 cap PO Q4-6H PRN headache #14 07/11/20 50 mg-300 mg-40 mg capsule caps (Fioricet) lorazepam 0.5 mg tablet (Ativan) 0.5 mg PO DAILY PRN anxiety #7 tabs 07/14/20 hydrocortisone acetate 25 mg 25 mg MN BID #12 ea 08/15/21 rectal suppository (Anusol-HC) Allergies Allergy/AdvReac Type Severity Reaction Status Date / Time Sulfa (Sulfonamide AdvReac Diarrhea Verified 07/12/20 21:45 Antibiotics) Review of Systems Review of Systems: Yes all other systems are reviewed and are negative [facility] Past Medical History Medical History Bipolar 1 disorder Chronic back pain Chronic headaches Ectopic , tubal HTN (hypertension) Obesity Optic neuritis Surgical History Bariatric surgery status H/O abdominoplasty Social History Social History Household Members: Children Housing: Apartment Do you presently have visiting nurse or other home services: No Alcohol intake: never Patient Tobacco Use Status: Former Tobacco user Second Hand Smoke Exposure: No Advance Directives: No Advance Directives Information Provided: No service: No Current occupational status: unemployed Physical Exam Vital Signs: Vital Signs: Last Vital Signs Temp 98.2 F 08/15/21 18:51 Pulse 81 08/15/21 22:14 Resp 17 08/15/21 18:51 BP 128/76 08/15/21 22:14 Pulse Ox 98 08/15/21 22:14 O2 Del Method 08/15/21 22:14 BMI result Body Mass Index 37.3 Appearance: Alert. Oriented X3. No acute distress. Eyes: PERRLA, No Nystagmus ENT: Pharynx normal. Oral Mucosa moist Neck: Normal inspection. Neck supple. CVS: Normal heart rate and rhythm. Pulses normal. Respiratory: No respiratory distress. Equal air entry bilateral, no wheezing/rales/rhonchi Abdomen: Soft gaseous distended nontender Bowel sounds are present, no mass palpable, no CVA tenderness rectal: External hemorrhoids visible tender to touch blood on the finger Skin: Skin warm and dry. Normal skin color. Normal skin turgor. Extremities: No lower extremity edema. No calf tenderness Neuro: Oriented X 3. MDM - GI Bleed MDM Narrative Medical decision making narrative: Patient with the hemorrhoidal bleed complaining abdominal distension although she is eating normally multiple complaints with a CT scan of the abdomen which was negative for any obstruction will discharge patient home Lab Data Attestation: I reviewed the patient's lab results. Result diagrams: 08/15/21 19:02 08/15/21 19:02 Labs: Lab Results 08/15/21 08/15/21 08/15/21 Range/Units 19:02 19:02 19:02 WBC 9.2 (4.8-10.8) X10*3/uL RBC 4.09 L (4.20-5.50) X10*6/uL Hgb 12.9 (12.0-16.0) g/dl Hct 38.6 (37.0-47.0) % MCV 94.4 (80.0-98.0) fL MCH 31.5 (27.0-33.0) pg MCHC 33.4 (31.0-35.0) g/dl RDW 13.6 (11.0-16.0) % Plt Count 324 (160-400) X10*3/uL MPV 9.4 (9.4-12.3) fL Immature Gran % (Auto) 1.0 H (0.0-0.4) % Neut % (Auto) 50.2 (45-73) % Lymph % (Auto) 37.3 (20-40) % [place] % (Auto) 7.0 (2-11) % Eos % (Auto) 3.8 (0-4) % Baso % (Auto) 0.7 (0-2) % Lymph # (Auto) 3.4 (1.2-4.9) X10*3/uL [place] # (Auto) 0.6 (0.1-1.2) X10*3/uL Eos # (Auto) 0.4 (0.0-0.4) X10*3/uL Baso # (Auto) 0.1 (0.0-0.2) X10*3/uL Abs Immat Gran (auto) 0.09 H (0.00-0.03) X10*3/uL Absolute Neuts (auto) 4.6 (2.0-8.3) x10*3/uL Absolute Nucleated RBC 0.000 (0.0-0.012) X10*3/uL Nucleated RBC % (auto) 0.0 (0.0-0.2) /100WBC PT 9.4 L (10.0-13.1) SEC INR 0.8 L (0.9-1.1) APTT 32.3 (24.1-38.0) SEC Sodium 141 (135-145) mmol/L Potassium 4.1 (3.3-5.1) mmol/L Chloride 108 (96-108) mmol/L Carbon Dioxide 24 (22-29) mmol/L Anion Gap 13 (12-20) BUN 18 H (9-16) mg/dL Creatinine 0.78 (0.5-1.4) mg/dL Estim Creat Clear Calc 104.5 Estimated GFR > 60 Random Glucose 109 (60-115) mg/dL Calcium 8.7 (8.4-10.2) mg/dL Total Bilirubin 0.2 (0.0-1.0) mg/dL AST 16 (5-31) U/L ALT 17 (0-31) U/L Alkaline Phosphatase 76 (39-117) U/L Total Protein 6.8 (6.5-8.0) g/dL Albumin 4.2 (3.5-5.0) g/dL Discharge Plan Discharge Clinical Impression: Hemorrhoids Patient Disposition: Home, Self-Care Instructions: Hemorrhoids (ED) Additional Instructions: Anusol suppository as advised Avoid straining when moving bowels Prescriptions: New hydrocortisone acetate [Anusol-HC] 25 mg suppository 25 mg MN BID Qty: 12 0RF No Action vqwqxaebbb-umzausisgxryv-wgjk [Fioricet] 50-300-40 mg capsule 1 cap PO Q4-6H PRN (Reason: headache) Qty: 14 0RF clonidine HCl 0.1 mg tablet 1 tab PO TID gabapentin [Neurontin] 600 mg tablet 600 mg PO QID trazodone 50 mg tablet 50 mg PO BEDTIME lamotrigine 25 mg tablet 25 mg PO DAILY albuterol sulfate [ProAir HFA] 90 mcg/actuation HFA aerosol inhaler 90 mcg inhalation NEEDED PRN (Reason: Allergic Reaction) topiramate 50 mg tablet 50 mg PO BID ferrous sulfate 325 mg (65 mg iron) Tablet 325 mg PO DAILY cholecalciferol (vitamin D3) 50 mcg (2,000 unit) Tablet 50 mcg PO DAILY PNV cmb#95-ferrous fumarate-FA [] 28 mg iron- 800 mcg Tablet 1 tab PO DAILY lorazepam [Ativan] 0.5 mg tablet 0.5 mg PO DAILY PRN (Reason: anxiety) Qty: 7 0RF cyclobenzaprine 10 mg tablet 10 mg PO TID PRN (Reason: muscle spasm) Qty: 14 0RF ondansetron 4 mg tablet,disintegrating 4 mg PO Q8H PRN (Reason: nausea and vomiting) Qty: 20 0RF dicyclomine 20 mg tablet 20 mg PO TID PRN (Reason: abdominal discomfort) Qty: 30 0RF
[2021-08-15 19:54] VITALS: BP 137/93; PULSE 85; O2SAT 98
[2021-08-15] MEDS: Ondansetron ODT 4 MG TAB.RAPDIS TRANSLINGU (20:38)
[2021-08-15] MEDS: Dicyclomine HCl 10 MG CAPSULE 20 MG PO (22:02)
[2021-08-15] MEDS: Simethicone 80 MG TAB.CHEW 160 MG PO (22:10)
[2021-08-15 22:14] VITALS: BP 128/76; PULSE 81; O2SAT 98
== END 2021-08-15 22:41 | disposition home or self-care (01) ==
PROVIDERS: Emergency Provider Internal Medicine; PCP Internal Medicine
DX: K64.4 Residual hemorrhoidal skin tags (principal); K62.5 Hemorrhage of anus and rectum; I10 Essential (primary) hypertension; Z87.891 Personal history of nicotine dependence
CPT/HCPCS: 36415; 74018; 74176; 80053; 85025; 85610; 85730; 99284

== ENCOUNTER 2022-02-16 15:32 | Outpatient (REF) | payer OTHER, SELFPAY ==
--- NOTE | ~2022-02-16 | MM_ITS ---
EXAMINATION: MM SCREENING DIGITAL BREAST TOMOSYNTHESIS, BILATERAL CLINICAL INFORMATION: Screening. Asymptomatic. Prior outside mammography approximately 10 years ago and currently unavailable. The lifetime risk of breast cancer based on the Tyrer-Cuzick Model is 17%. COMPARISON: None. TECHNIQUE: Digital breast tomosynthesis is performed in both the craniocaudal and mediolateral oblique views along with computer-aided detection (CAD). Synthesized 2D images are generated from the tomosynthesis. FINDINGS: There are scattered areas of fibroglandular density (ACR BI-RADS breast composition Category b). There are no significant masses, abnormal calcifications, or other abnormalities. No architectural abnormality. There are scattered benign round calcifications predominantly anterior calcifications in both breasts. The axilla and skin contours are unremarkable. Radiology department staff will attempt to retrieve prior outside mammography to allow for comparison in an addendum report. MM/MM tomosynthesis screening BI IMPRESSION: No mammographic evidence of malignancy. ASSESSMENT: BI-RADS 2: Benign RECOMMENDATION: Routine annual mammography screening. This patient's information was entered into a reminder system with a target due date for their next mammogram.
== END 2022-02-16 15:33 | disposition home or self-care (01) ==
LOC: HO.MAMMO 15:32
PROVIDERS: PCP Internal Medicine; Visit Provider Internal Medicine
DX: Z12.31 Encounter for screening mammogram for malignant neoplasm of breast (principal)
CPT/HCPCS: 77063; 77067

== ENCOUNTER 2025-01-14 09:41 | Emergency (ER) | payer OTHER, SELFPAY ==
--- NOTE | ~2025-01-14 | CT_ITS ---
EXAMINATION: CT CERVICAL SPINE WITHOUT IV CONTRAST HISTORY: fall with head strike, midline tenderness. TECHNIQUE: Helical CT of the cervical spine was performed per standard departmental protocol. Coronal and sagittal reformatted images were also evaluated. One or more of the following techniques was used for dose reduction: Automated exposure control, adjustment of the mA and/or kV according to patient size, use of iterative reconstruction technique. DLP: 399 mGy-cm COMPARISON: There are no prior studies available for comparison. FINDINGS: CERVICAL SPINE: The vertebral bodies maintain normal height and alignment without evidence of fracture or subluxation. The intervertebral disc spaces are preserved. Evaluation for disc pathology is limited by lack of intrathecal contrast material. BRAIN: The visualized portion of the brain is unremarkable. SINUSES: The visualized paranasal sinuses, mastoid air cells and middle ear cavities are unremarkable. LUNG APICES: The visualized lung apices are clear. SOFT TISSUES: The visualized paraspinal soft tissues are unremarkable. CT/CT cervical spine wo IV con IMPRESSION: No evidence of fracture or malalignment of the cervical spine. Electronically signed by: Ham Capps MD 01/14/2025 11:00 AM [facility]
--- NOTE | ~2025-01-14 | XR_ITS ---
EXAMINATION: XR PELVIS CLINICAL INFORMATION: fall, coccyx pain, R hip pain COMPARISON: CT of abdomen/pelvis on August 15, 2021 TECHNIQUE: AP view of the pelvis. FINDINGS: No displaced fracture. Normal alignment. Sacroiliac joints and symphysis pubis are intact. Bilateral hip joint spaces are preserved. No abnormal soft tissue calcification. Multiple surgical clips project over the lower abdomen/pelvis. Intrauterine device and multiple calcifications project over the lower pelvis. XR/XR pelvis 1-2V IMPRESSION: No displaced fracture. Symmetric appearance of the hip joints. Electronically signed by: Chrystal Montgomery MD 01/14/2025 12:28 PM [facility]
--- NOTE | ~2025-01-14 | CT_ITS ---
EXAMINATION: CT HEAD WITHOUT IV CONTRAST HISTORY: fall with head strike. TECHNIQUE: Unenhanced helical CT of the head was performed per standard departmental protocol. Coronal and sagittal reformats of the head were also evaluated. One or more of the following techniques was used for dose reduction: Automated exposure control, adjustment of the mA and/or kV according to patient size, use of iterative reconstruction technique. DLP: 667 mGy-cm COMPARISON: Comparison is made with the prior examination dated 07/12/2020. FINDINGS: BRAIN: The brain parenchyma is unremarkable. There is normal ricks/white differentiation. The ventricular system is normal in size and configuration. There is no mass effect or midline shift. No intra- or extra-axial fluid collections are identified. SINUSES: There are polyps versus mucous retention cysts in the right sphenoid and bilateral maxillary sinuses. The mastoid air cells and middle ear cavities are well pneumatized. ORBITS: The visualized orbits are unremarkable. BONES/SOFT TISSUES: The extracranial soft tissues are unremarkable. The calvarium is intact. No suspicious lytic or sclerotic lesions. CT/CT head/brain wo IV con IMPRESSION: No acute intracranial abnormality. Electronically signed by: Ham Capps MD 01/14/2025 10:56 AM [facility]
--- NOTE | ~2025-01-14 | XR_ITS ---
EXAMINATION: XR LUMBOSACRAL SPINE CLINICAL INFORMATION: fall, midline spinal tenderness COMPARISON: Radiographs of the lumbar spine on April 03, 2018 TECHNIQUE: Three views of the lumbosacral spine. FINDINGS: Posterior fusion hardware at L4-L5 appears intact. Disc spacer at L4-L5. Normal alignment. No compression fracture. Disc spaces are preserved. Sacroiliac joints are intact. XR/XR lumbar spine 2-3V IMPRESSION: No acute fracture or subluxation. Electronically signed by: Chrystal Montgomery MD 01/14/2025 12:37 PM [facility]
[2025-01-14 09:44] VITALS: BP 116/67; PULSE 95; RESP 20; TEMP 36.6; O2SAT 99; BMI 30.4
--- NOTE | 2025-01-14 10:36 | PC.NURSE ---
Pt slipped on ice in [employer] parking lot, hit head. C/o headache and neck pain. Ambulated into ED. MELANIE.
--- NOTE | 2025-01-14 10:59 | ED_ITS ---
HPI - General Adult General Chief complaint: Fall Stated complaint: fall head back hip inj Time Seen by Provider: 01/14/25 10:06 Source: patient, RN notes reviewed and old records reviewed Mode of arrival: ambulatory Limitations: no limitations History of Present Illness ED Provider: EMILIE Gomez HPI narrative: 44-year-old female with medical history of conversion disorder, optic neuritis, HTN, bipolar 1 disorder, presents to ED after mechanical fall on black ice. Patient states she was at [employer] walking across the parking lot to her car when she slipped on black ice causing her to fall backwards and hit her head on the pavement. Patient is reporting pain of the coccyx, R hip, midline lumbar spine, midline cervical spine with mild occipital headache. Patient denies chest pain, SOB, abdominal pain, nausea, vomiting, diarrhea, visual changes. MD complaint: mechanical fall, pain of R hip, coccyx, lumbar spine, cervical spine Related Data Home Medications ?Medication ?Instructions ?Recorded ?Confirmed albuterol sulfate 90 mcg/actuation 90 mcg inhalation A S NEEDED PRN 07/12/20 07/13/20 aerosol inhaler (ProAir HFA) Allergic Reaction clonidine HCl 0.1 mg tablet 1 tab PO TID anxiety 07/1207/13/20 gabapentin 600 mg tablet 600 mg PO QID 07/12/2007/13 (Neurontin) lamotrigine 25 mg tablet 25 mg PO DAILY 07/12/20/03/04 topiramate 50 mg tablet 50 mg PO BID 07/12/20 trazodone 50 mg tablet 50 mg PO BEDTIME 07/12/20 cholecalciferol (vitamin D3) 50 50 mcg PO DAILY 07/13/20 mcg (2,000 unit) tablet ferrous sulfate 325 mg (65 mg 325 mg PO DAILY 07/13/20 07/13/20 iron) tablet vit no.95-ferrous 1 tab PO DAILY 07/13/2003/04 fumarate 28 mg-folic acid 800 mcg tablet () Previous Rx's ?Medication ?Instructions ?Recorded cyclobenzaprine 10 mg tablet 10 mg PO TID PRN muscle s pasm #14 03/12/20 tabs dicyclomine 20 mg tablet 20 mg PO TID PRN abdominal 0 03/12/20 discomfort #30 tabs ondansetron 4 mg disintegrating 4 mg PO Q8H PRN nausea and 03/12/20 tablet vomiting #20 tabs svyyeuqmyd-gwkdronxbwduw-rfpwhlos 1 cap PO Q4-6H PRN h eadache #14 07/11/20 50 mg-300 mg-40 mg capsule caps (Fioricet) lorazepam 0.5 mg tablet (Ativan) 0.5 mg PO DAILY PRN a nxiety #7 tabs 07/14/20 hydrocortisone acetate 25 mg 25 mg MA BID #12 ea 08/15 rectal suppository (Anusol-HC) cyclobenzaprine 5 mg tablet 5 mg PO BID PRN muscle spa sm #10 01/14/25 tabs Allergies Allergy/AdvReac Type Severity Reaction Status Date / Time Sulfa (Sulfonamide AdvReac Diarrhea Verified 01/14/25 09:49 Antibiotics) Review of Systems Review of Systems: Yes all other systems are reviewed and are negative PMFSH Past Medical History Attestation statement: The following information was validated with the patient. Source: old records reviewed and nursing notes reviewed Medical History Optic neuritis Ectopic , tubal Obesity HTN (hypertension) Chronic back pain Chronic headaches Bipolar 1 disorder Surgical History H/O abdominoplasty Bariatric surgery status Social History Social History Household Members: Children Housing: Apartment Do you presently have visiting nurse or other home services: No Alcohol intake: never Patient Tobacco Use Status: Former Tobacco user Second Hand Smoke Exposure: No Advance Directives: No Advance Directives Information Provided: Yes Do you have a plan to hurt others: No Plan service: No Current occupational status: unemployed Physical Exam ED Vital Signs: Vital Signs - 24 hr 01/14/25 09:44 Temperature 97.8 F Pulse Rate 95 Respiratory Rate 20 Blood Pressure 116/67 Pulse Oximetry 99 Oxygen Delivery Method Room Air BMI result Body Mass Index 30.4 GENERAL APPEARANCE: ?AxOx4, In C collar, no acute distress. HEENT: ?NC, AT. MMM. EOMI, clear conjunctiva, oropharynx clear. NECK: ?Supple without lymphadenopathy. In C-collar, pain of distal cervical spine HEART:? Normal rate and regular rhythm, normal S1/S2, no m/r/g LUNGS:? CTAB, moving air well. No crackles or wheezes are heard. ABDOMEN: ?Soft, nontender, nondistended BACK: No CVAT, no obvious deformity. TTP of midline lumbar spine and of lumbar paraspinal muscles, no bony step offs palpated, no overlying skin changes or ecchymosis EXTREMITIES: ?Without cyanosis, clubbing or edema. TTP of R greater trochanter, and coccyx without ecchymosis or overlying skin changes, no bony irregularities palpated or observed visually NEUROLOGICAL: ?Grossly nonfocal. Alert and oriented, moving all 4 extremities. Skin: ?Warm and dry without any rash. Medications Administered Discontinued Medications Generic Name Dose Route Start Last Admin Trade Name Freq PRN Reason Stop Dose Admin Acetaminophen 1,000 mg in 100 mls @ 400 mls/hr 01/14/25 11:02 01/14/25 12:09 Ofirmev IV 01/14/25 11:16 Infused ONCE ONE Infusion Morphine Sulfate 4 mg 01/14/25 11:02 01/14/25 11:27 Morphine Sulfate 4 Mg/Ml Cartridge IVPUSH 01/14/25 11:03 4 mg ONCE ONE Administration Protocol Medical Decision Making Medical Decision Making MDM Narrative: 44-year-old female with medical history of conversion disorder, optic neuritis, HTN, bipolar 1 disorder, presents to ED after mechanical fall on black ice. [facility] to her car when she slipped on black ice causing her to fall backwards and hit her head on the pavement. Patient is reporting pain of the coccyx, R hip, midline lumbar spine, midline cervical spine with mild occipital headache. Plan: CT head/brain, CT cervical spine, XR lumbar spine, XR pelvis Patient's imaging negative for acute intracranial abnormalities, fractures or dislocations. Patients imaging negative for acute intracranial findings, fractures or dislocations. Patient was medicated in the department with 1 g IV Tylenol, 4 mg IV morphine. Patient is still somewhat sore and achy after her fall today. Patient will be discharged home with 5 day course of Flexeril for muscle spasms. I counseled patient to take 500 mg of Tylenol and 400 mg of ibuprofen every 6 hours for pain management at home and use ice over the affected areas. Patient feels well enough to go home for self-care today. I counseled patient to follow up with her primary care doctor to ensure resolution of her muscle soreness. Patient is in agreement with the plan. Differential Diagnosis Differential Diagnoses: The differential diagnosis associated with the presentation includes ICH Skull fracture Cervical spine fracture Lumbar spine fracture Pelvis fracture Right hip fracture Cervical strain Lumbar strain Admission/Observation Consideration of admission/observation: Escalation of care including admission/observation considered Independent Interpretation I performed an independent interpretation of an: Plain X-Ray and CT Scan Interpretation: I personally interpreted the CT head/brain which was negative for acute intracranial abnormalities, I agree with the radiologist's interpretation I personally interpreted the CT C-spine which was negative for fracture, dislocation, I agree with the radiologist's interpretation I personally interpreted the XR pelvis which was negative for fracture, dislocation, I agree with the radiologist's interpretation I personally interpreted the XR lumbar spine which was negative for fracture, dislocation, I agree with the radiologist's interpretation Radiology Impression Discussion of test interpretation with radiology: I have reviewed the radiologist's reading. Radiologist Impression: CT head/brain FINDINGS: BRAIN: The brain parenchyma is unremarkable. There is normal ricks/white differentiation. The ventricular system is normal in size and configuration. There is no mass effect or midline shift. No intra- or extra-axial fluid collections are identified. SINUSES: There are polyps versus mucous retention cysts in the right sphenoid and bilateral maxillary sinuses. The mastoid air cells and middle ear cavities are well pneumatized. ORBITS: The visualized orbits are unremarkable. BONES/SOFT TISSUES: The extracranial soft tissues are unremarkable. The calvarium is intact. No suspicious lytic or sclerotic lesions. CT/CT head/brain wo IV con IMPRESSION: No acute intracranial abnormality. Electronically signed by: Ham Capps MD 01/14/2025 10:56 AM [facility] Dictated By: Ham Capps MD Signed By: <Electronically signed by Ham Capps MD in OV> 01/14/[address] C-spine FINDINGS: CERVICAL SPINE: The vertebral bodies maintain normal height and alignment without evidence of fracture or subluxation. The intervertebral disc spaces are preserved. Evaluation for disc pathology is limited by lack of intrathecal contrast material. BRAIN: The visualized portion of the brain is unremarkable. SINUSES: The visualized paranasal sinuses, mastoid air cells and middle ear cavities are unremarkable. LUNG APICES: The visualized lung apices are clear. SOFT TISSUES: The visualized paraspinal soft tissues are unremarkable. CT/CT cervical spine wo IV con IMPRESSION: No evidence of fracture or malalignment of the cervical spine. Electronically signed by: Ham Capps MD 01/14/2025 11:00 AM EST RP Dictated By: Ham Capps MD Signed By: <Electronically signed by Ham Capps MD in OV> 01/14/25 1100 XR pelvis FINDINGS: No displaced fracture. Normal alignment. Sacroiliac joints and symphysis pubis are intact. Bilateral hip joint spaces are preserved. No abnormal soft tissue calcification. Multiple surgical clips project over the lower abdomen/pelvis. Intrauterine device and multiple calcifications project over the lower pelvis. XR/XR pelvis 1-2V IMPRESSION: No displaced fracture. Symmetric appearance of the hip joints. Electronically signed by: Chrystal Montgomery MD 01/14/2025 12:28 PM EST RP Dictated By: Chrystal Montgomery MD Signed By: <Electronically signed by Chrystal Montgomery MD in OV> 01/14/25 1228 XR lumbar spine FINDINGS: Posterior fusion hardware at L4-L5 appears intact. Disc spacer at L4-L5. Normal alignment. No compression fracture. Disc spaces are preserved. Sacroiliac joints are intact. XR/XR lumbar spine 2-3V IMPRESSION: No acute fracture or subluxation. Electronically signed by: Chrystal Montgomery MD 01/14/2025 12:37 PM EST RP Dictated By: Chrystal Montgomery MD Signed By: <Electronically signed by Chrystal Montgomery MD in OV> 01/14/25 1237 External Record Review External record reviewed: Inpatient record, Office record and Outpatient record Chronic Conditions Patient?s care impacted by: Hypertension and Other (Conversion disorder, optic neuritis, bipolar 1 disorder) Discharge Plan Discharge Clinical Impression: Concussion without loss of consciousness, Musculoskeletal pain Patient Disposition: Home, Self-Care Additional Instructions: You were evaluated in the emergency department after experiencing a mechanical fall. The imaging today including CT head/brain, CT cervical spine, x-ray pelvis, x-ray lumbar spine was negative for any abnormalities or fractures. Your symptoms are most likely due to concussion, and musculoskeletal strain after your fall. Common concussion symptoms include headache, dizziness, difficulty concentrating, confusion, visual problems, sensitivity to light, fatigue, nausea, and sleep disturbances. These symptoms typically improve over time. ACTIVITY AND REST RECOMMENDATIONS for concussion First 24-48 Hours:?Observe more restrictive physical and cognitive rest during the first several days after injury. This means limiting activities that require significant concentration or physical exertion. You may engage in light activities such as 5-15 minutes of screen time or reading that do not cause more than mild symptom worsening.[2][4] After First 48 Hours:?You should gradually resume activities that do not significantly worsen your symptoms. This includes a stepwise increase in both physical and cognitive activities. Prolonged strict rest beyond the first few days may actually delay your recovery.[2-3] Physical Activity:?After the initial rest period, begin light aerobic activity (such as walking) that does not worsen symptoms beyond mild discomfort. Gradually increase the intensity and duration as tolerated. You are being prescribed a 5 day course of Flexeril which is a muscle relaxer for muscle strain. Additionally, you can take 500 mg of Tylenol, and 400 mg of ibuprofen every 6 hours for pain. Additionally, you can use ice over the affected areas. Please follow up with your primary care doctor to ensure resolution of your symptoms. Please return to the emergency department if you experience headaches, nausea, vomiting, fevers over 100.4?, chest pain, shortness of breath, worsening pain or any new/worsening/concerning symptoms. Prescriptions: New cyclobenzaprine 5 mg tablet 5 mg PO BID PRN (Reason: muscle spasm) Qty: 10 0RF No Action kneiizngmr-uycucuacektth-ibuy [Fioricet] 50-300-40 mg capsule 1 cap PO Q4-6H PRN (Reason: headache) Qty: 14 0RF clonidine HCl 0.1 mg tablet 1 tab PO TID gabapentin [Neurontin] 600 mg tablet 600 mg PO QID trazodone 50 mg tablet 50 mg PO BEDTIME lamotrigine 25 mg tablet 25 mg PO DAILY albuterol sulfate [ProAir HFA] 90 mcg/actuation HFA aerosol inhaler 90 mcg inhalation NEEDED PRN (Reason: Allergic Reaction) topiramate 50 mg tablet 50 mg PO BID ferrous sulfate 325 mg (65 mg iron) Tablet 325 mg PO DAILY cholecalciferol (vitamin D3) 50 mcg (2,000 unit) Tablet 50 mcg PO DAILY PNV no.95-ferrous fumarate-FA [] 28 mg iron- 800 mcg Tablet 1 tab PO DAILY lorazepam [Ativan] 0.5 mg tablet 0.5 mg PO DAILY PRN (Reason: anxiety) Qty: 7 0RF cyclobenzaprine 10 mg tablet 10 mg PO TID PRN (Reason: muscle spasm) Qty: 14 0RF ondansetron 4 mg tablet,disintegrating 4 mg PO Q8H PRN (Reason: nausea and vomiting) Qty: 20 0RF dicyclomine 20 mg tablet 20 mg PO TID PRN (Reason: abdominal discomfort) Qty: 30 0RF hydrocortisone acetate [Anusol-HC] 25 mg suppository 25 mg MA BID Qty: 12 0RF Print Language: Macedonian
--- OUTSIDE RECORDS SUMMARY | 2025-01-14 12:23 | XMS_ITS | Clinical Summary ---
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 mammogram in the presence of a clinically suspicious palpable abnormality does not preclude the possibility of malignancy or alter the indications for biopsy. ASSESSMENT: BI-RADS 1: NEGATIVE RECOMMENDATION(S): 1: Clinical correlation recommended BILATERAL Continue annual screening mammography [facility] [address] [place], [address] -------- FINAL REPORT -------- Dictated By: Johann Denney Dictated Date: 07/09/2024 14:43 ET Assigned Physician: Johann Denney Reviewed and Electronically Signed By: Johann Denney Signed Date: 07/09/2024 14:46 ET Workstation ID: [id number] Transcribed By: Self Edit Transcribed Date: 07/09/2024 14:43 ET Narrative 07/09/2024 2:46 PM EDT EXAM: DIAGNOSTIC MAMMOGRAPHY, BILATERAL ULTRASOUND: DIAGNOSTIC ULTRASOUND, BILATERAL HISTORY: Abnormal clinical breast exam. Bilateral breast pain. Severe intermittent pain in the areolar regions x4 months. Patient reports interval weight loss. COMPARISON: 02/16/22 TECHNIQUE: Synthesized CC and MLO projections of each breast. Tomosynthesis of each breast in the CC and MLO projections. ADDITIONAL IMAGING: None High-frequency linear transducer ultrasound of each breast targeted to the area(s) of clinical concern. Computer-aided detection was employed with the [employer]ite AI 3-D. TISSUE DENSITY: There are scattered areas of fibroglandular density. (BI-RADS category B) FINDINGS: MAMMOGRAPHY: RIGHT BREAST: No suspicious mass. No suspicious calcification. No distortion. No suspicious finding in the retroareolar regions. LEFT BREAST: No suspicious mass. No suspicious calcification. No distortion. No suspicious findings in the retroareolar regions. ULTRASOUND: RIGHT BREAST The retroareolar region was examined with high-frequency linear transducer. There is no suspicious mass. No suspicious area of altered echotexture. No etiology for right retroareolar pain demonstrated LEFT BREAST The retroareolar region was examined with high-frequency linear transducer. There is no suspicious mass. No suspicious area of altered echotexture. No etiology for right retroareolar pain demonstrated Procedure Note Johann Denney MD - 07/09/2024 EXAM: DIAGNOSTIC MAMMOGRAPHY, BILATERAL ULTRASOUND: DIAGNOSTIC ULTRASOUND, BILATERAL HISTORY: Abnormal clinical breast exam. Bilateral breast pain. Severeintermittent pain in the areolar regions x4 months. Patient reports interval weight loss. COMPARISON: 02/16/22 TECHNIQUE: Synthesized CC and MLO projections of each breast.Tomosynthesis of each breast in the CC and MLO projections. ADDITIONAL IMAGING: None High-frequency linear transducer ultrasound of each breast targeted to thearea(s) of clinical concern. Computer-aided detection was employed with the [employer]ite AI 3-D. TISSUE DENSITY: There are scattered areas of fibroglandular density.(BI-RADS category B) FINDINGS: MAMMOGRAPHY: RIGHT BREAST: No suspicious mass. No suspicious calcification. No distortion. No suspicious finding in the retroareolar regions. LEFT BREAST: No suspicious mass. No suspicious calcification. No distortion. No suspicious findings in the retroareolar regions. ULTRASOUND: RIGHT BREAST The retroareolar region was examined with high-frequency lineartransducer. There is no suspicious mass. No suspicious area of altered echotexture. No etiology for right retroareolar pain demonstrated LEFT BREAST The retroareolar region was examined with high-frequency lineartransducer. There is no suspicious mass. No suspicious area of altered echotexture. No etiology for right retroareolar pain demonstrated IMPRESSION: No mammographic or sonographic evidence of malignancy. The patient should be managed on the basis of the clinical breast exam A negative mammogram in the presence of a clinically suspicious palpableabnormality does not preclude the possibility of malignancy or alter theindications for biopsy. ASSESSMENT: BI-RADS 1: NEGATIVE RECOMMENDATION(S): 1: Clinical correlation recommended BILATERAL Continue annual screening mammography [facility] [address], [address] -------- FINAL REPORT -------- Dictated By: Johann Denney Dictated Date: 07/09/2024 14:43 ET Assigned Physician: Johann Denney Reviewed and Electronically Signed By: Johann Denney Signed Date: 07/09/2024 14:46 ET Workstation ID: [id number] Transcribed By: Self Edit Transcribed Date: 07/09/2024 14:43 ET Jorge DUMONT IMG BI PROCEDURES Final Result * Depression Screening (11/12/2023) Pathologist [facility] Depression Screening Abstracted Result [facility] Provider HEALTH MAINTENANCE Final Result * (ABNORMAL) Lipid panel (11/12/2023) [facility] LDL/HDL Ratio 3 0 - 4 Triglycerides 105 0 - 150 mg/dL Cholesterol 210(A) 0 - 200 mg/dL HDL 70 >=40 mg/dL LDL Cholesterol 119(A) 0 - 100 mg/dL Blood Venous blood specimen / Unknown Result [facility] Historical Provider LAB BLOOD ORDERABLES Nadira lowery Result * Pap Smear (07/26/2018) Pathologist [facility] Pap smear No Interpretation , Abstracted Result [facility] Provider HEALTH MAINTENANCE Final Result from Last 3 Months or Most Recently Relevant to Health Maintenance Insurance [facility] [place] [address] Care Teams Buckler And Lacer Relationship Specialty Start Date End Date Sahara Escalera MD [address] [place] [id number] PCP - General Internal Medicine 07/07/20
--- OUTSIDE RECORDS SUMMARY | 2025-01-14 12:23 | XMS_ITS | Encounter Summary ---
Author Organization [facility] Address [address] [place] [address] Care Team Providers Care Draw Hand Name Role Phone Sahara Escalera MD Primary Care Prov ider Reason for Referral * Consultation (Routine) - Closed Specialty Diagnoses / Procedures Referred By Isaura ordonez Referred To Contact Rheumatology Diagnoses MELODY positive Jorge Christine PA [address] [place], [place] Phone: tel: fax: [facility] - Rheumatology [address] [place] [address] Phone: tel: fax: Referral ID Status Reason Start Date Expiration Date V isits Requested Visits Authorized [id number] Closed Specialty Services Required 2024 2025 1 1 Encounter Details Date Type Department Care Team (Late st Contact Info) Description 2024 Results Follow-Up Adult Medicine - [place] [address] [place] [address] Jorge Christine PA [address] [place], [place] Social History Tobacco Use Types Packs/Day Years Used Date Smoking Tobacco: Former Cigarettes 0.3 18.8 0 02/13/2004 - 2022 Smokeless Tobacco: Former Alcohol Use Standard Drinks/Week Comments Not Currently 0 (1 standard drink = 0.6 oz pur e alcohol) Comments No Sex and Gender Information Value Date Recorded Sex Assigned at Female 12/26/2023 2:59 PM EST Legal Sex Female 9:24 AM EST Gender Identity Female 12/26/2023 2:59 PM EST Sexual Orientation Straight 12/26/2023 2: 59 PM EST documented as of this encounter Functional Status * Are you deaf or do you have serious difficulty hearing? Answer Date of Assessment Author No 12/27/2023 6:52 PM Shanita Mcnulty RN * Are you blind or do you have serious difficulty seeing, even when wearing glasses? Answer Date of Assessment Author No 12/27/2023 6:52 PM Shanita Mcnulty RN * Do you have serious difficulty walking or climbing stairs? Answer Date of Assessment Author No 12/27/2023 6:52 PM Shanita Mcnulty RN * Do you have serious difficulty dressing or bathing? Answer Date of Assessment Author No 12/27/2023 6:52 PM Shanita Mcnulty RN * Because of a physical, mental, or emotional condition, do you have serious difficulty doing errandsalone such as visiting the doctor? Answer Date of Assessment Author No 12/27/2023 6:52 PM Shanita Mcnulty RN documented as of this encounter Mental Status * Because of a physical, mental, or emotional condition, do you have serious difficulty concentrating, remembering, or making decisions? (5 years old or older) Answer Entry Date Author No 12/27/2023 6:52 PM Shanita Mcnulty RN documented in this encounter Plan of Treatment Upcoming Encounters Date Type Department Care Team (Late st Contact Info) Description 01/19/2025 4:30 PM EST Office Visit Adult Medicine [facility] [address] [place] [phone] Jorge Christine PA [address] [place] [address] Scheduled Referrals Name Type Priority Associated Diagnoses Order Schedule Ambulatory referral to Rheumatology Outpatient Referral Routine MELODY positive 1 Occurrences starting 2024 until 2025 documented as of this encounter Visit Diagnoses Diagnosis MELODY positive- Primary documented in this encounter Care Teams Draw Hand Relationship Specialty Start Date End Date Sahara Escalera MD [address] [place] [id number] PCP - General Internal Medicine 07/07/20 documented as of this encounter
--- OUTSIDE RECORDS SUMMARY | 2025-01-14 12:23 | XMS_ITS | Clinical Summary ---
Author Organization [facility] Prior to 07/12/[address] [place] [id number] Care Team Providers Care Gunstock Spray Unit Adjuster Name Role Phone Sahara Escalera MD Primary Care Prov ider Allergies Active Allergy Reactions Criticality Noted Date Comments Amlodipine 10/21/2020 Oxycodone-Acetaminophen Nausea And Vomiting Bupropion Other (See Comments) 07/03/2014 headache Medications Medication Sig Dispensed Refills Start Date End Date Status clonazePAM (KLONOPIN) 1 MG tablet Take 1 mg by mouth 2 (two) times a day. 0 05/30/2014 Active DYMISTA 137-50 MCG/ACT SUSP 1 spray daily. 0 06/17/2014 Active hydrOXYzine (VISTARIL) 50 MG capsule Take 100 mg by mouth every night at bedtime. 0 06/05/2014 Active clotrimazole-betamet hasone (LOTRISONE) cream Apply 1 application topically 2 (two) times a day. 0 06/16/2014 Active ibuprofen (ADVIL,MOTRIN) 400 MG tablet Take 400 mg by mouth as needed. 0 06/08/2014 Active metoprolol (TOPROL-XL) 25 MG 24 hr tablet Take 25 mg by mouth daily. 0 04/21/2014 Active CALCIUM PO Take by mouth. 0 Active Turmeric 500 MG CAPS Take by mouth. 0 Active Multiple Vitamin (MULTIVITAMIN ADULT PO) Take by mouth. 0 Active gabapentin (NEURONTIN) 800 MG tablet Take 800 mg by mouth 3 (three) times a day. 0 10/16/2020 Active Cholecalciferol 25 MCG (1000 UT) capsule Take 1,000 Units by mouth. 0 Active busPIRone (BUSPAR) 5 MG tablet Take 5 mg by mouth 2 (two) times a day. 0 10/07/2020 Active baclofen (LIORESAL) 20 MG tablet Take 20 mg by mouth 3 (three) times a day. 0 10/13/2020 Active buPROPion (WELLBUTRIN SR) 150 MG 12 hr tablet Take 1 tablet by mouth 2 (two) times a day. 0 04/09/2018 Active Active Problems Problem Noted Date Diagnosed Date Obstructive apnea 07/02/2014 Family History Medical History Relation Name Comments Cancer Cousin Heart attack Maternal Grandfather Bone cancer Maternal Grandmother Brain cancer Maternal Grandmother Cancer Paternal Aunt Relation Name Status Comments Cousin Maternal Grandfather Maternal Grandmother Paternal Aunt Social History Tobacco Use Types Packs/Day Years Used Date Smoking Tobacco: Former Smokeless Tobacco: Never Alcohol Use Standard Drinks/Week Comments No 0 (1 standard drink = 0.6 oz pur e alcohol) Sex and Gender Information Value Date Recorded Sex Assigned at Not on file Gender Identity Not on file Sexual Orientation Not on file Job Start Date Occupation Industry Not on file Not on file Not on file Last Filed Vital Signs Vital Sign Reading Time Taken Comments Blood Pressure 116/80 10/21/2020 12:43 PM EDT Pulse 102 10/21/2020 12:43 PM EDT Temperature 36.2 C (97.1 F) 10/21/2020 12:43 PM EDT Respiratory Rate 14 07/03/2014 8:30 AM EDT Oxygen Saturation 95% 10/21/2020 12:43 PM EDT Inhaled Oxygen Concentration - - Weight 90.3 kg (199 lb) 10/21/2020 12:43 PM EDT Height 160 cm (5' 3 ) 10/21/2020 12:43 PM EDT Body Mass Index 35.25 10/21/2020 12:43 PM EDT Plan of Treatment Health Maintenance Due Date Last Done Comments Hepatitis B Vaccines (1 of 3 - 3-dose series) 1979 Hepatitis C Screening 1979 Depression Screening 1991 BMI Counseling 12/17/1997 Preventative Health Evaluation 12/17/1997 Cervical Cancer Screening (Pap Smear) 12/17/2000 COVID-19 Vaccine ( season) 2024 06/07/2020, 05/15/2020 Influenza Vaccine (#1) 2024 0, 11/29/2018, 11/19/2017, Additional history exists Colon Cancer Screening (Colonoscopy) 12/17/2024 DTap / Tdap / Td (2 - Td or Tdap) 01/24/2027 01/24/2017 Pneumococcal Vaccine Aged Out 01/24/2017 No long er eligible based on patient's age to complete this topic RSV Ped < 20 months Aged Out No longe r eligible based on patient's age to complete this topic Care Teams Gunstock Spray Unit Adjuster Relationship Specialty Start Date End Date Sahara Escalera MD PCP - General Internal Medicine 09/30/20
--- OUTSIDE RECORDS SUMMARY | 2025-01-14 12:23 | XMS_ITS | Clinical Summary ---
Author Organization [facility] Address [address] [place] [address] Care Team Providers Care Transition Mgr Rn Name Role Phone Flory Nicholson MD Primary Care Provider Unavailabl e Social History Tobacco Use Types Packs/Day Years Used Date Smoking Tobacco: Never Assessed Comments Unknown Sex and Gender Information Value Date Recorded Sex Assigned at Not on file Legal Sex Female 3:08 AM EST Gender Identity Not on file Sexual Orientation Not on file Plan of Treatment Not on file Care Teams Transition Mgr Rn Relationship Specialty Start Date End Date Flory Nicholson MD [address] [place] [address] PCP - General 04/11/17
--- OUTSIDE RECORDS SUMMARY | 2025-01-14 12:23 | XMS_ITS ---
Author Name [facility] Organization Unknown Care Team Organization Name Specialty Phone Email Start Date End Da te [facility] Cecilio Cheek Primary Care 06/19/20222023 [facility] DEL PASTRANA Primary Care 12/20/2021 10/01/2023
[2025-01-14 13:24] VITALS: BP 136/70; PULSE 69; RESP 16; TEMP 36.6; O2SAT 98
[2025-01-14 13:25] VITALS: BP 136/70; PULSE 69; RESP 16; TEMP 36.6; O2SAT 98
== END 2025-01-14 13:26 | disposition home or self-care (01) ==
PROVIDERS: Emergency Provider Emergency Medicine; PCP Internal Medicine
DX: S06.0X0A Concussion without loss of consciousness, initial encounter (principal); M79.18 Myalgia, other site; I10 Essential (primary) hypertension; W00.0XXA Fall on same level due to ice and snow, initial encounter; Y93.89 Activity, other specified; Y92.481 Parking lot as the place of occurrence of the external cause; Y99.8 Other external cause status; Z79.899 Other long term (current) drug therapy
CPT/HCPCS: 70450; 72100; 72125; 72170; 96365; 96375; 99284; J0131; J2270

== ENCOUNTER → 2025-01-14 09:52 | Outpatient (BNV) | payer OTHER, SELFPAY | PROVIDERS: Emergency Provider Emergency Medicine; PCP Internal Medicine; Visit Provider Radiology Diagnostic Radiology | DX: S09.90XA Unspecified injury of head, initial encounter (principal); Z04.3 Encounter for examination and observation following other accident; M54.2 Cervicalgia; M54.50 Low back pain, unspecified; M25.551 Pain in right hip | CPT/HCPCS: 70450; 72100; 72125; 72170 ==